=== PATIENT | male | born 1945 | race Caucasian/White ===

== ENCOUNTER 2017-03-18 19:46 | Emergency (ER) | payer MEDICARE ==
[2011-02-03 07:38] VITALS: BMI 23.0
[2017-03-18 20:35] LABS: BASOPHILS 0.2 % (0-2); EOSINOPHILS 0.8 % (0-7); HEMOGLOBIN 12.2 g/dL (13.5-17.5); IMMATURE GRANULOCYTES 0.2 % (0-5); LYMPHOCYTES 11.5 % (15-50); MCH 29.3 pg (26.0-34.0); MCV 88.9 fL (80.0-100.0); MEAN PLATELET VOLUME 9.2 fL (7.4-10.4); MONOCYTES 10.8 % (2-11); NEUTROPHILS 76.5 % (40-80); RBC 4.16 10x6/uL (4.20-6.10); RDW 12.3 % (11.5-14.5); WBC 12.3 10x3/uL (4.8-10.8)
[2017-03-18 20:43] LABS: PLATELET COUNT 418 10x3/uL (130-400)
[2017-03-18 21:01] LABS: ALBUMIN 2.6 g/dL (3.4-5.0); ALKALINE PHOSPHATASE 56 U/L (46-116); ALT (SGPT) 19 U/L (10-68); CALC OSMOLALITY 281 mosm/kg (275-300); CALCIUM 8.5 mg/dL (8.5-10.1); CHLORIDE - SERUM 103 mmol/L (98-107); CREATININE - SERUM 0.9 mg/dL (0.6-1.3); GLUCOSE 105 mg/dL (74-106); POTASSIUM - SERUM 4.7 mmol/L (3.5-5.1); PROTEIN - SERUM 6.6 g/dL (6.4-8.2); SODIUM 140 mmol/L (136-145); UREA NITROGEN 20 mg/dL (7-18); eGFR NON AFRICAN AMERICAN 89 mL/min (90-120)
== END 2017-03-18 23:28 | disposition home or self-care (01) ==
LOC: D.ER 19:46
PROVIDERS: Emergency Medicine
DX: K59.00 Constipation, unspecified (principal); F17.200 Nicotine dependence, unspecified, uncomplicated

== ENCOUNTER 2017-03-22 12:48 | Inpatient (IN) | payer MEDICARE ==
[~2017-03-22] VITALS: Ht 177.8 cm; Wt 79.7 kg
--- NOTE | ~2017-03-22 | HEMODYNAMI ---
PATIENT:MICHEL FISH JR MEDICAL RECORD: [id number] : 49 LOCATION:[address] ADMISSION DATE: 03/22/17 Generatedon:03/23/201714:02 Patient name: MICHEL FISH Patient #: [id number] SSN: : 1945 Date of study: 03/23/2017 Page: Of Hemodynamic Procedure Report Patient Data Patient Demographics Procedure consent was obtained First Name: MICHEL Gender: Male Last Name: ABE Suffix: [facility] Initial: Jaclyn : 1945 Patient #: [id number] Age: 71 year(s) Race: Unknown Additional ID: [id number] Contact details Address: [address] [place] [address] State: [place] City: [place] Zip code: [address] Admission Admission Data Admission Date: 03/22/2017 Admission Time: 12:48 Room #: 2113 Procedure Procedure Types Cath Procedure Peripheral Cath Diagnostic Procedure Miscellaneous PARACENTESIS WITH GUIDE Procedure Description Procedure Date Procedure Date: 03/23/2017 Procedure Start Time: 13:31 Procedure Staff Name Function Rj Tsai MD Performing Physician Keshia Letser RT Scrub Deborah Batista RN Nurse Milind Abarca RT Monitor Hemodynamics Rest Heart Rate: 89 (bpm) Snapshots Pre Cath Intra NCS Post Cath Vital Signs Time Heart Resp SPO2 NIBP (mmHg) Rhythm Pain Sedation Rate (ipm) (%) Status Level (bpm) 13:22:40 86 23 98 127/86(107) NSR 0 (11) 10(A) , No pain 13:26:51 87 21 98 117/86(93) NSR 0 (11) 10(A) , No pain 13:30:52 86 19 99 125/91(106) NSR 0 (11) 10(A) , No pain 13:35:51 90 18 98 Measuring NSR 0 (11) 10(A) , No pain 13:36:12 90 34 86 122/88(110) NSR 0 (11) 10(A) , No pain 13:40:20 87 21 98 116/81(97) NSR 0 (11) 10(A) , No pain 13:44:25 87 22 99 113/77(96) NSR 0 (11) 10(A) , No pain 13:48:31 88 20 99 106/72(93) NSR 0 (11) 10(A) , No pain 13:52:43 87 13 98 109/74(85) NSR 0 (11) 10(A) , No pain 13:57:42 86 23 98 Measuring NSR 0 (11) 10(A) , No pain 13:58:31 86 19 98 108/75(89) NSR 0 (11) 10(A) , No pain Procedure Log Time Note 13:13:37 Keshia OSUNA (R) () sent for patient. Start room use. 13:14:04 Time tracking: Regular hours 13:14:18 Plan of Care:Hemodynamics will remain stable., Cardiac rhythm will remain stable., Comfort level will be maintained., Respiratory function will remain adequate., Patient/ family verbilizes understanding of procedure., Procedure tolerated without complication., Recovers from procedure without complications.. 13:14:34 Patient arrived from Med II to IR. Patient remains on bed/stretcher for procedure. 13:14:41 Correct patient and procedure confirmed by team. 13:14:47 Signed procedure consent form obtained from patient. 13:14:50 ECG and BP/O2 sat monitors applied to patient. 13:14:55 - 13:17:01 SEE ANESTHESIA NOTE FOR PRE PROCEDURE TIVA 13:21:37 Vital chart was started 13:23:55 Baseline sample Acquired. 13:31:29 Physician arrived 13:31:29 --------ALL STOP TIME OUT------ 13:31:30 Final Timeout: patient, procedure, and site verified with staff and physician. All members of the team are in agreement. 13:31:35 Left abdomen site verified by team. 13:31:39 Physical assessment completed. ASA score P 3 - A patient with severe systemic disease as per Rj Tsai MD. 13:31:43 Sedation plan: IV Moderate Sedation Versed, Fentanyl 13::52 Procedure started. 13::52 Full Disclosure recording started 13:31:56 Local anesthetic to Abdominal area with Lidocaine 1% by Rj Tsai MD.INITIAL ACCESS ONLY 13:45:17 [id number] 8FR CATH DRAIN TRAY opened to sterile field. 13:45:26 CONNECTING TUBE FOR DRAINAGE BAG opened to sterile field. 13:53:31 4 LITERS DRAINED 13:53:58 Procedure ended.(Physican Out) 13:59:37 Sharps counted by scrub and verified by R.N. 13:59:45 Insertion/operative site no bleeding no hematoma. 14:00:00 Post-op/insertion site Left Abdominal area dressed using a 4 x 4 and Tegaderm. 14:00:08 Post Abdominal area:stable 14:00:46 SEE ANESTHESIA NOTE FOR POST PROCEDURE TIVA 14:00:58 Post procedure instruction explained to patient.Patient verbalizes understanding. 14:01:00 Procedure and supply charges have been captured, reviewed, submitted an d are correct. 14:01:24 Report given to [facility]. 14:01:27 Patient transfered to [facility] with Bed. 14:02:02 Vital chart was stopped Device Usage Item Name Manufacture Quantity Catalog Hospital Part Current Mini [facility] Lot# / Number Charge Number Stock Stock Serial# Code [id number] Care[employer]usion 1 [id number] 8FR CATH DRAIN TRAY CONNECTING TUBE [place] [id number] [id number] 5 FOR DRAINAGE Scientific BAG Signature Audit [place] Stage Time Signature Unsigned Intra-Procedure 03/23/2017 Milind 2:02:00 PM Rima RT (R) (CV) Signatures Monitor : Milind Signature : Rima RT Date : Time : [facility] [address] [place] [address]
[2017-03-22 13:16] VITALS: BP 125/83
--- NOTE | 2017-03-22 13:42 | NUR ---
ARRIVE TO ROOM VIA WHEELCHAIR FROM DOCTOR BARRIOS'S OFFICE ACCOMPANIED BY FRIEND. ALERT AND ORIENTED X4. AMBULATES TO BED FROM WHEELCHAIR WITH OUT DIFFICULTY. GAIT STEADY. CONTRAST FOR CT SCAN DRANK. DENIES ANY NEEDS. BED LOCKED AND LOW. CALL LIGHT IN REACH. TWO SIDERAILS UP. SCDs ON.
[2017-03-22] MEDS ORDERED: BETAPACE 80 MG80 MG PO (13:46)
[2017-03-22] MEDS ORDERED: MULTI-DAY VITAM1 TAB PO (13:47)
[2017-03-22] MEDS ORDERED: CARDIZEM CD240 MG PO (13:47)
[2017-03-22] MEDS ORDERED: BAYER CHEWABLE81 MG PO (13:48)
[2017-03-22] MEDS ORDERED: CITRATE OF MAG300 ML PO (13:48)
[2017-03-22] MEDS ORDERED: HYDROCODONE-APA1 TAB PO (13:49)
[2017-03-22] MEDS ORDERED: CYCLOBENZAPRINE10 MG PO (13:50)
[2017-03-22] MEDS ORDERED: GABAPENTIN100 MG PO (13:51)
[2017-03-22] MEDS ORDERED: KLONOPIN1 MG PO (13:51)
[2017-03-22] MEDS ORDERED: TRAZODONE HCL50 MG PO (13:52)
[2017-03-22] MEDS ORDERED: AMBIEN10 MG PO (13:52)
[2017-03-22 14:07] LABS: BASOPHILS 0.3 % (0-2); EOSINOPHILS 0.9 % (0-7); HEMATOCRIT 38.2 % (42.0-54.0); HEMOGLOBIN 12.3 g/dL (13.5-17.5); IMMATURE GRANULOCYTES 0.4 % (0-5); LYMPHOCYTES 11.6 % (15-50); MCHC 32.2 g/dL (31.0-37.0); MCV 90.1 fL (80.0-100.0); MEAN PLATELET VOLUME 9.2 fL (7.4-10.4); MONOCYTES 11.2 % (2-11); NEUTROPHILS 75.6 % (40-80); PLATELET COUNT 460 10x3/uL (130-400); RBC 4.24 10x6/uL (4.20-6.10); RDW 12.7 % (11.5-14.5); WBC 15.7 10x3/uL (4.8-10.8)
[2017-03-22 14:20] LABS: ALBUMIN 2.5 g/dL (3.4-5.0); ALKALINE PHOSPHATASE 58 U/L (46-116); ALT (SGPT) 17 U/L (10-68); CALC OSMOLALITY 278 mosm/kg (275-300); CALCIUM 8.8 mg/dL (8.5-10.1); CARBON DIOXIDE 27.4 mmol/L (21.0-32.0); CHLORIDE - SERUM 102 mmol/L (98-107); CREATININE - SERUM 0.9 mg/dL (0.6-1.3); GLUCOSE 105 mg/dL (74-106); POTASSIUM - SERUM 5.1 mmol/L (3.5-5.1); PROTEIN - SERUM 6.5 g/dL (6.4-8.2); SODIUM 139 mmol/L (136-145); UREA NITROGEN 16 mg/dL (7-18); eGFR NON AFRICAN AMERICAN 89 mL/min (90-120)
[2017-03-22 14:30] LABS: THYROID STIMULATING HORMONE 4.47 uIU/mL (0.36-3.74)
[2017-03-22 15:53] VITALS: BP 116/75; BMI 25.4
[2017-03-22 16:00] VITALS: BP 115/72
[2017-03-22 19:00] VITALS: BP 115/81
[2017-03-23] VITALS (11 sets, daily range): BP systolic 98–149; BP diastolic 50–93; Ht 177.8 cm; Wt 79.7 kg
[2017-03-23 05:52] LABS: BASOPHILS 0.1 % (0-2); EOSINOPHILS 0.3 % (0-7); HEMATOCRIT 36.9 % (42.0-54.0); HEMOGLOBIN 12.3 g/dL (13.5-17.5); IMMATURE GRANULOCYTES 0.3 % (0-5); LYMPHOCYTES 6.7 % (15-50); MCH 28.9 pg (26.0-34.0); MCHC 33.3 g/dL (31.0-37.0); MEAN PLATELET VOLUME 9.3 fL (7.4-10.4); MONOCYTES 7.1 % (2-11); NEUTROPHILS 85.5 % (40-80); PLATELET COUNT 463 10x3/uL (130-400); RBC 4.25 10x6/uL (4.20-6.10); RDW 12.7 % (11.5-14.5); WBC 14.7 10x3/uL (4.8-10.8)
[2017-03-23 06:00] LABS: INR 1.29 (0.85-1.17)
[2017-03-23 06:13] LABS: ALKALINE PHOSPHATASE 54 U/L (46-116); ALT (SGPT) 15 U/L (10-68); CALC OSMOLALITY 274 mosm/kg (275-300); CALCIUM 8.3 mg/dL (8.5-10.1); CARBON DIOXIDE 26.3 mmol/L (21.0-32.0); CHLORIDE - SERUM 102 mmol/L (98-107); GLUCOSE 96 mg/dL (74-106); POTASSIUM - SERUM 5.1 mmol/L (3.5-5.1); PRE-ALBUMIN 7.3 mg/dL (18.0-35.7); PROTEIN - SERUM 6.5 g/dL (6.4-8.2); SODIUM 138 mmol/L (136-145); eGFR NON AFRICAN AMERICAN 79 mL/min (90-120)
[2017-03-23 06:19] LABS: MCV 86.8 fL (80.0-100.0)
[2017-03-23 06:22] LABS: UREA NITROGEN 11 mg/dL (7-18)
--- NOTE | 2017-03-23 07:00 | NUR ---
REPORT RECIEVED FROM OFF GOING NURSE. SEE ASSESSMENT FLOW SHEET. PT ON A CLEAR LIQUID DIET FOR PARECENTESIS SCHEDULED TODAY. PT BREATHING NORMAL AND UNLABORED. DENIES PAIN. CALL LIGHT IN REACH. WILL CONT POC
--- NOTE | 2017-03-23 09:00 | NUR ---
PT LEFT WITH STAFF FOR BOWEL CLEANSING VIA ENEMA.
--- NOTE | 2017-03-23 10:30 | NUR ---
CONCENT FOR PARCENTISIS SIGNED AND PLACED IN THE CHART. PT REMAINS THE FROM PREVIOUS SHIFT ASSESSMENT. CALL LIGHT IN REACH.
--- NOTE | 2017-03-23 14:00 | NUR ---
PT LEFT WITH GI TEAM FOR PARECENTISIS.
--- NOTE | 2017-03-23 15:00 | NUR ---
PT BACK IN ROOM ABD DESTENSION SUBSISDED AND NOT FIRM BEFORE. PT DOING WELL AND REMAINS AT BASELINE FROM PREVIOUS ASSESSMENT. GOT REPORT FROM NURSE STATING THE PULLED OFF 4L OF FLUID. BREATHING NORMAL AND UNLABORED. CALL LIGHT INR EACH.
[2017-03-23 15:46] LABS: EOS BF 2 %; MACROPHAGES BF 21 %; MESOTHELIALS BF 2 %; NEUT - BF 55 %
--- NOTE | 2017-03-23 17:00 | NUR ---
AT BED SIDE STATING PLANS FOR A FULL LIQUID FOR DINNER TODAY, CLEAR LIQUID DIET STARTING TOMORROW, PLAN FOR COLOSCOPY PREP, PUSH PO FLUIDS TOMORROW, START ABT, A CXR AND UA WITH C AND S FOR ELEVATED TEMP THE NIGHT BEFORE AND ELEVATED WBC'S.
--- NOTE | 2017-03-23 18:45 | NUR ---
REPORT GIVEN TO ON COMING NURSE AND AWARE OF NEW ORDERS. PT BREATHING NORMAL AND UNLABORED. CALL LIGHT IN REACH. WILL CONT POC
--- NOTE | 2017-03-23 19:52 | NUR ---
RESUMED CARE OF PT, LYING IN BED RESPIRAITONS EVEN AND UNLABORED ON ROOM AIR. LEFT FOREARM INFUSING 1/2 NS @ 100. PLAN OF CARE DISCUSSED, URINAL AT BEDSIDE TO OBTAIN SPECIMEN. NO NEEDS VOICED AT THIS TIME, WILL CONTINUE TO MONITOR. SEE NURSE ASSESSMENT.
[2017-03-24] VITALS: BP 108/87
[2017-03-24 02:25] LABS: APPEARANCE CLEAR (CLEAR); BILIRUBIN NEGATIVE (NEGATIVE); COLOR YELLOW (YELLOW); GLUCOSE NEGATIVE (NEGATIVE); KETONE NEGATIVE (NEGATIVE); LEUKOCYTE ESTERASE TRACE (NEGATIVE); NITRITE NEGATIVE (NEGATIVE); PROTEIN NEGATIVE (NEGATIVE); UROBILINOGEN NORMAL (NORMAL)
[2017-03-24 02:28] LABS: BACTERIA FEW /hpf (NONE SEEN); EPITHELIAL CELLS 0-5 /hpf (0-5); RED CELLS - URINE 0-5 /hpf (0-5); WHITE CELLS - URINE 0-5 /hpf (0-5)
--- NOTE | 2017-03-24 02:51 | NUR ---
CALL LIGHT IN REACH. WILL CONTINUE WITH PLAN OF CARE. WILL CONTINUE TO MONITOR.
[2017-03-24 04:00] VITALS: BP 114/75
[2017-03-24 06:20] LABS: BASOPHILS 0.1 % (0-2); EOSINOPHILS 0.4 % (0-7); HEMATOCRIT 35.4 % (42.0-54.0); HEMOGLOBIN 11.8 g/dL (13.5-17.5); IMMATURE GRANULOCYTES 0.3 % (0-5); LYMPHOCYTES 9.5 % (15-50); MCH 28.6 pg (26.0-34.0); MCHC 33.3 g/dL (31.0-37.0); MCV 85.7 fL (80.0-100.0); MEAN PLATELET VOLUME 9.4 fL (7.4-10.4); MONOCYTES 10.1 % (2-11); NEUTROPHILS 79.6 % (40-80); PLATELET COUNT 474 10x3/uL (130-400); RBC 4.13 10x6/uL (4.20-6.10); RDW 12.8 % (11.5-14.5); WBC 12.7 10x3/uL (4.8-10.8)
--- NOTE | 2017-03-24 06:31 | NUR ---
GONE FOR XRAY
[2017-03-24 06:43] LABS: INR 1.5 (0.85-1.17)
[2017-03-24 06:54] LABS: ALBUMIN 1.9 g/dL (3.4-5.0); ALKALINE PHOSPHATASE 44 U/L (46-116); ALT (SGPT) 12 U/L (10-68); CALC OSMOLALITY 284 mosm/kg (275-300); CALCIUM 7.9 mg/dL (8.5-10.1); CARBON DIOXIDE 27.5 mmol/L (21.0-32.0); CHLORIDE - SERUM 108 mmol/L (98-107); CREATININE - SERUM 0.8 mg/dL (0.6-1.3); GLUCOSE 123 mg/dL (74-106); PROTEIN - SERUM 5.7 g/dL (6.4-8.2); SODIUM 143 mmol/L (136-145); UREA NITROGEN 10 mg/dL (7-18); eGFR NON AFRICAN AMERICAN > 90 mL/min (90-120)
[2017-03-24 06:55] LABS: POTASSIUM - SERUM 4.2 mmol/L (3.5-5.1)
--- NOTE | 2017-03-24 07:50 | NUR ---
AM ROUNDING DONE WITH NO COMPLAINT FROM PATIENT EXCEPT SLIGHT HEADAHE AND DISCOMFORT TO ABDOMEN. I TALKED TO HIM ABOUT THE FLUID SHIFTING FROM THE PARATHORCENTHSIS OF 4L YESTERDAY AND HIS BODY GETTING USED TO IT NOT BEING THERE. CLEAN 2 X 2 AND OPSITE SEEN TO LEFT UPPER QUAD. ON ROOM AIR. WILL START GI PREP TODAY. LEFT FA SEENW ITH 1/2 NS INFUSING AT 100 CC/HR. PTC OF "BLOOD SUGAR DROPPING" POC GLUCOSE IS 112. WILL CPOC.
[2017-03-24 09:12] VITALS: BP 95/61
[2017-03-24 11:33] VITALS: BP 102/71
--- NOTE | 2017-03-24 13:47 | NUR ---
STILL WORKING ON COLON/GI PREP.
[2017-03-24 16:13] VITALS: BP 124/72
--- NOTE | 2017-03-24 18:06 | NUR ---
STILL WITH GI PREP. WILL BE NPO PAST MIDNIGHT TONIGHT
[2017-03-24 19:00] VITALS: BP 122/77
--- NOTE | 2017-03-24 22:52 | NUR ---
PT IN BED WATCHING TELEVISION. DENIES NEEDS AT THIS TIME WILL CONTINUE TO MONITOR
[2017-03-25] VITALS (10 sets, daily range): BP systolic 110–143; BP diastolic 68–95
[2017-03-25 05:30] LABS: BASOPHILS 0.1 % (0-2); EOSINOPHILS 0.5 % (0-7); HEMATOCRIT 35.3 % (42.0-54.0); HEMOGLOBIN 11.8 g/dL (13.5-17.5); IMMATURE GRANULOCYTES 0.4 % (0-5); LYMPHOCYTES 6.8 % (15-50); MCH 28.2 pg (26.0-34.0); MCHC 33.4 g/dL (31.0-37.0); MCV 84.4 fL (80.0-100.0); MEAN PLATELET VOLUME 9.3 fL (7.4-10.4); MONOCYTES 8.3 % (2-11); NEUTROPHILS 83.9 % (40-80); PLATELET COUNT 473 10x3/uL (130-400); RBC 4.18 10x6/uL (4.20-6.10); WBC 13.3 10x3/uL (4.8-10.8)
[2017-03-25 05:51] LABS: INR 1.45 (0.85-1.17); PROTIME 17.5 SECONDS (11.6-15.0)
[2017-03-25 05:59] LABS: ALBUMIN 1.7 g/dL (3.4-5.0); ALKALINE PHOSPHATASE 45 U/L (46-116); ALT (SGPT) 11 U/L (10-68); BILIRUBIN - TOTAL 0.33 mg/dL (0.2-1.3); CALCIUM 7.5 mg/dL (8.5-10.1); CHLORIDE - SERUM 104 mmol/L (98-107); CREATININE - SERUM 0.7 mg/dL (0.6-1.3); GLUCOSE 90 mg/dL (74-106); PROTEIN - SERUM 5.7 g/dL (6.4-8.2); SODIUM 138 mmol/L (136-145); eGFR NON AFRICAN AMERICAN > 90 mL/min (90-120)
[2017-03-25 06:00] LABS: CALC OSMOLALITY 273 mosm/kg (275-300); POTASSIUM - SERUM 3.4 mmol/L (3.5-5.1); UREA NITROGEN 7 mg/dL (7-18)
[2017-03-25 06:55] LABS: APTT 40.5 SECONDS (22.8-39.4)
--- NOTE | 2017-03-25 07:58 | NUR ---
AM ROUNDING DONE WITH NPO FOR MULTIPLE PROCEDURES TODAY. LEFT FA SEEN WITH 1/2 NS INFUSING AT 100 CC/HR. ON ROOM AIR. LEFT PACEMAKER SITE SEEN. ABDOMEN IS LARGE AND DISTENDED. WILL CPOC.
--- NOTE | 2017-03-25 08:23 | NUR ---
TO IR VIA BED.
[2017-03-25 09:15] LABS: ALPHA FETOPROTEIN -(TUMOR MRK) 1.1 ng/mL (0.0-8.3)
--- NOTE | 2017-03-25 09:31 | NUR ---
RETURNS FROM IR WITH CT BX DONE, NO PARACENTHESIS NEEDED. DRESSING SEEN TO RIGHT LOWER ABDOMEN, C/D/I. STILL NPO FOR COLONOSCOPY THIS AFTERNOON.
--- NOTE | 2017-03-25 09:58 | NUR ---
COMPLAINTS OF ABDOMEN PAIN 03/03. 0.5 MG IV DILAUDID GIVEN PER REQUEST,
--- NOTE | 2017-03-25 11:15 | NUR ---
Nutrition Follow Up: Chart reviewed. Pt continues NPO. +BM 03/24/17. Wt stable. Meds and labs reviewed. Rec advancing ZAYRA when medically feasible. RD following.
--- NOTE | 2017-03-25 11:59 | NUR ---
STILL NPO AT PRESENT TIME, DENIES ANY NEEDS AT THIS TIME. WILL CPOC.
--- NOTE | 2017-03-25 13:43 | NUR ---
STILL NPO AT PRESENT TIME.
--- NOTE | 2017-03-25 15:54 | NUR ---
COMPLAINTS OF PAIN TO ABDOMINAL AREA 05/03. DILAUDID 0.5 MG GIVEN SLOW IVP MIXED WITH 6 CC NS
--- NOTE | 2017-03-25 16:40 | NUR ---
TO GI LAB VIA BED.
--- NOTE | 2017-03-25 18:21 | NUR ---
RETURNS FROM GI LAB, DENIES NEEDS.
--- NOTE | 2017-03-25 18:40 | NUR ---
PATIENT INQUIRING ABOUT HIS PAIN MEDICATION. I EXPLAINED THAT IT IS NOT DUE TILL 1999, THEN I SEE THAT IT HAS FALLEN OFF THE EMAR. JHOANA KAUR PAGED TO SEE ABOUT HOME MEDICATION OF NORCO OR CONTINUING OF DILAUDID. AWAITING CALL BACK.
--- NOTE | 2017-03-25 19:30 | NUR ---
PT IN BED WATCHING TELEVISION. REQUESTS PAIN MEDICATION HOWEVER THERE IS NO PAIN MEDICATION ORDERED. WILL CALL MD TO REQUEST A PAIN MED BE ORDERED.
[2017-03-26] VITALS: BP 150/54
[2017-03-26 04:00] VITALS: BP 166/71
[2017-03-26 05:56] LABS: BASOPHILS 0.1 % (0-2); EOSINOPHILS 0.5 % (0-7); HEMATOCRIT 36.5 % (42.0-54.0); HEMOGLOBIN 12.3 g/dL (13.5-17.5); IMMATURE GRANULOCYTES 0.4 % (0-5); LYMPHOCYTES 7.7 % (15-50); MCH 28.5 pg (26.0-34.0); MCHC 33.7 g/dL (31.0-37.0); MCV 84.7 fL (80.0-100.0); MEAN PLATELET VOLUME 9.1 fL (7.4-10.4); MONOCYTES 9.6 % (2-11); NEUTROPHILS 81.7 % (40-80); PLATELET COUNT 471 10x3/uL (130-400); RBC 4.31 10x6/uL (4.20-6.10); RDW 12.9 % (11.5-14.5); WBC 13.9 10x3/uL (4.8-10.8)
[2017-03-26 06:04] LABS: INR 1.48 (0.85-1.17); PROTIME 17.8 SECONDS (11.6-15.0)
[2017-03-26 06:16] LABS: ALBUMIN 1.6 g/dL (3.4-5.0); ALKALINE PHOSPHATASE 44 U/L (46-116); ALT (SGPT) 15 U/L (10-68); BILIRUBIN - TOTAL 0.32 mg/dL (0.2-1.3); CALC OSMOLALITY 275 mosm/kg (275-300); CALCIUM 7.7 mg/dL (8.5-10.1); CARBON DIOXIDE 25.7 mmol/L (21.0-32.0); CHLORIDE - SERUM 105 mmol/L (98-107); CREATININE - SERUM 0.8 mg/dL (0.6-1.3); GLUCOSE 104 mg/dL (74-106); POTASSIUM - SERUM 3.9 mmol/L (3.5-5.1); PROTEIN - SERUM 5.6 g/dL (6.4-8.2); SODIUM 138 mmol/L (136-145); UREA NITROGEN 13 mg/dL (7-18); eGFR NON AFRICAN AMERICAN > 90 mL/min (90-120)
--- NOTE | 2017-03-26 07:30 | NUR ---
REPORT RECIEVED. PT RESTING QUIELTLY, RR EVEN AND UNLABORED. PT REQUESTED PAIN MEDICATION TO BE INCREASED FROM NORCO 5 TO NORCO 10. WILL CONSULT THE MD ABOUT PT REQUEST. WILL CTM.
[2017-03-26 08:38] VITALS: BP 137/79
[2017-03-26 12:54] VITALS: BP 122/79
[2017-03-26 16:37] VITALS: BP 107/69
[2017-03-26 19:00] VITALS: BP 114/69
--- NOTE | 2017-03-26 19:00 | NUR ---
PT RESTING QUIETLY, DENIES NEEDS AT THIS TIME. RR EVEN AND UNLABORED. WILL GIVE REPORT ON PT CONDITION FOR THE DAY.
--- NOTE | 2017-03-26 22:42 | NUR ---
PT IN BED WATCHING TELEVISION DENIES NEEDS AT THIS TIME WILL CONTINUE TO MONITOR
[2017-03-27] VITALS: BP 104/56
[2017-03-27 04:00] VITALS: BP 99/60
[2017-03-27 05:22] LABS: BASOPHILS 0.2 % (0-2); EOSINOPHILS 1.8 % (0-7); HEMATOCRIT 34.9 % (42.0-54.0); HEMOGLOBIN 11.7 g/dL (13.5-17.5); IMMATURE GRANULOCYTES 0.5 % (0-5); LYMPHOCYTES 8.7 % (15-50); MCH 28.3 pg (26.0-34.0); MCHC 33.5 g/dL (31.0-37.0); MCV 84.3 fL (80.0-100.0); MEAN PLATELET VOLUME 9.2 fL (7.4-10.4); MONOCYTES 11.1 % (2-11); NEUTROPHILS 77.7 % (40-80); PLATELET COUNT 456 10x3/uL (130-400); RBC 4.14 10x6/uL (4.20-6.10); WBC 11.8 10x3/uL (4.8-10.8)
[2017-03-27 05:43] LABS: INR 1.35 (0.85-1.17); PROTIME 16.6 SECONDS (11.6-15.0)
[2017-03-27 05:50] LABS: ALBUMIN 1.9 g/dL (3.4-5.0); ALKALINE PHOSPHATASE 39 U/L (46-116); ALT (SGPT) 13 U/L (10-68); BILIRUBIN - TOTAL 0.21 mg/dL (0.2-1.3); CALC OSMOLALITY 277 mosm/kg (275-300); CALCIUM 7.5 mg/dL (8.5-10.1); CARBON DIOXIDE 26.3 mmol/L (21.0-32.0); CHLORIDE - SERUM 104 mmol/L (98-107); CREATININE - SERUM 0.8 mg/dL (0.6-1.3); GLUCOSE 104 mg/dL (74-106); POTASSIUM - SERUM 4.1 mmol/L (3.5-5.1); PROTEIN - SERUM 5.7 g/dL (6.4-8.2); SODIUM 139 mmol/L (136-145); UREA NITROGEN 12 mg/dL (7-18); eGFR NON AFRICAN AMERICAN > 90 mL/min (90-120)
--- NOTE | 2017-03-27 08:07 | NUR ---
INTRODUCED MYSELF TO PT PRIMARY RN FOR TODAYS SHIFT. PT A&O RESTING QUIETLY IN BED WATCHING TV. PT IS HOPING TO BE DISCHARGED TODAY. SHIFT ASSESSMENT COMPLETED. PTS ABDOMEN VERY TIGHT AND DISTENDED BOWEL SOUNDS ACTIVE X4. PT TENDER TO LLQ AND RUQ. REMOVED DRSG FROM BIOPSY AND PARACENTESIS AND SKIN CLEAN AND INTACT. NO S/S OF INFECTION NOTED. PT HAS A R.FA PIV WITH DRSG CDI AND SWAB CAPS IN USE. WILL REVIEW PTS CHART NOTES AND SEE ABOUT DISCHARGE PLANNING. PT DENIES ANY CURRENT NEEDS AT THIS TIME. CL IN REACH, BED IN LOWEST, SIDE RAILS X2. WILL CPOC.
[2017-03-27 08:58] VITALS: BP 108/65
--- NOTE | 2017-03-27 10:10 | NUR ---
PT VERY EAGER TO BE DISCHARGED. AT BEDSIDE TALKING WITH HIM. PAGED PRIMARY TO SEE ABOUT DISCHARGE ORDERS.
--- NOTE | 2017-03-27 11:08 | NUR ---
INITIATED ALBUMIN TO INFUSE VIA R.FA PIV. DRSG CDI AND SWAB CAPS IN USE. PT RESTING AND DENIES ANY CURRENT NEEDS. CL IN REACH. WILL CPOC.
[2017-03-27 11:53] VITALS: BP 108/66
[2017-03-27] MEDS ORDERED: FLORAJEN3 CAPS460 MG PO (12:19)
[2017-03-27] MEDS ORDERED: ALDACTONE100 MG PO (12:20)
[2017-03-27] MEDS ORDERED: PEPCID INJ20 MG/2 ML PO (12:20)
[2017-03-27] MEDS ORDERED: FUROSEMIDE10 MG/M1 PO (12:21)
[2017-03-27] MEDS ORDERED: FLAGYL 500500 MG/100 PO (12:22)
--- NOTE | 2017-03-27 13:50 | NUR ---
D/C PTS R.FA PIV WITH CATH TIP FULLY INTACT. BELONGINGS COLLECTED. DISCHARGE TEACHING PROVIDED AND PAPERS SIGNED. PT VERBALIZED UNDERSTANDING AND DENIES ANY FURTHER NEEDS OR QUESTIONS. FRIEND AT BEDSIDE FOR TRANSPORTATION.
--- NOTE | 2017-04-07 12:22 | EC ---
PATIENT:MICHEL FISH JR DATE OF SERVICE: 03/23/17 SEX: M MEDICAL RECORD: [id number] DATE OF : [birth year] LOCATION:[address] AGE OF PATIENT: 71 ADMISSION DATE: 03/23/17 REFERRING PHYSICIAN: INTERPRETING PHYSICIAN: HELENA HATCH MD ECHOCARDIOGRAM REPORT ECHO CHARGES 4 ECHO COMPLETE CLINICAL DIAGNOSIS: NEW ONSET ACITIES HX OF CAD CARDIOMYOPATHY,PACER ECHOCARDIOGRAPHIC MEASUREMENTS (adult normal given) AC root (d.<3.7cm) 4.1 cm LV Septum d (<1.2 cm> 1.6 cm Valve Excursion 2.2 cm LV Septum (systole) 1.9 cm Left Atria (s.<4.0cm> 3.6 cm LVPW d(<1.2cm) 1.5 cm RV (d.<2.3cm) 3.2 cm LVPW (sytole) 1.9 cm LV diastole(<5.6CM) 4.8 cm MV E-F(>70mm/sec) cm LV systole 2.5 cm LVOT Diameter 2.3 cm MV exc.(>10mm) cm Est.ejection fraction (50-75%) % Pericardial Effusion N DOPPLER: LVIT cm/sec A 77.0 cm/sec E 41.0 cm/sec LA cm/sec RVSP 31 mmHg LVOT 95 cm/sec AOP1/2T m/s Asc. Ao 180 cm/sec RVOT 97 cm/sec RA cm/sec PA 127 cm/sec AV Gradient Peak 12.98mmHg AV Mean 8.75 mmHg AV Area 1.9 cm MV Gradient Peak 7.45 mmHg MV Mean 2.80 mmHg MV Area cm COMMENTS: High Wire Artist: Patric CONTRERAS Gas Operations Analyst: 1 Dr. Hatch TAPE# PACS DATE OF SERVICE: 03/27/2017 Echocardiogram FINDINGS: 1. Left ventricular chamber size is within normal limits. Left ventricular systolic function is normal. Overall ejection fraction estimated at 60%. 2. Left atrium, right atrium, and right ventricle chamber sizes are within normal limits. 3. Valvular structures have normal structure and motion. ECHOCARDIOGRAM REPORT [id number] MICHEL FISH JR 4. Doppler interrogation only reveals mild tricuspid regurgitation. No other valvular insufficiency or stenosis. 5. No evidence of pericardial effusion or left ventricular thrombus. TRANSINT:[id number] Voice Confirmation ID: [id number] DOCUMENT ID: [id number] HELENA HATCH MD at 1222 CC: [id number] DICTATION DATE: 03/27/17 1118 MATERIAL EXPEDITOR: 03/27/17 1313 DIS IN 03/27/17 [place] [id number] [place] [id number]
== END 2017-03-27 14:02 | disposition home or self-care (01) | DRG 375 ==
LOC: D.M2 12:48 → OBSVTIME 12:48 → D.M2 12:48
PROVIDERS: Family Medicine; Internal Medicine Gastroenterology; Radiology Diagnostic Radiology; ADMIT Family Medicine
PROC: 0W9G3ZZ Drainage of Peritoneal Cavity, Percutaneous Approach (ICD-10-PCS; 2017-03-23)
PROC: 0DBT3ZX (ICD-10-PCS; principal; 2017-03-24)
PROC: 0DB98ZX Excision of Duodenum, Via Natural or Artificial Opening Endoscopic, Diagnostic (ICD-10-PCS; 2017-03-25)
PROC: 0DB68ZX Excision of Stomach, Via Natural or Artificial Opening Endoscopic, Diagnostic (ICD-10-PCS; 2017-03-25)
PROC: 0DB58ZX Excision of Esophagus, Via Natural or Artificial Opening Endoscopic, Diagnostic (ICD-10-PCS; 2017-03-25)
PROC: 0DJD8ZZ Inspection of Lower Intestinal Tract, Via Natural or Artificial Opening Endoscopic (ICD-10-PCS; 2017-03-25)
DX: C48.1 Malignant neoplasm of specified parts of peritoneum (principal); J98.11 Atelectasis; C78.80 Secondary malignant neoplasm of unspecified digestive organ; R18.0 Malignant ascites; K70.31 Alcoholic cirrhosis of liver with ascites; K70.0 Alcoholic fatty liver; I25.10 Atherosclerotic heart disease of native coronary artery without angina pectoris; Z85.038 Personal history of other malignant neoplasm of large intestine; I10 Essential (primary) hypertension; Z95.0 Presence of cardiac pacemaker; I48.91 Unspecified atrial fibrillation; K59.00 Constipation, unspecified; K76.89 Other specified diseases of liver; K29.70 Gastritis, unspecified, without bleeding; K44.9 Diaphragmatic hernia without obstruction or gangrene; K20.9 Esophagitis, unspecified; K29.80 Duodenitis without bleeding

== ENCOUNTER 2017-04-07 13:06 | Inpatient (IN) | payer MEDICARE ==
[~2017-04-07] VITALS: Ht 177.8 cm; Wt 80.6 kg
[~2017-04-07 13:06] MED LIST: ALDACTONE100 MG PO; AMBIEN10 MG PO; BAYER CHEWABLE81 MG PO; BETAPACE 80 MG80 MG PO; CARDIZEM CD240 MG PO; CITRATE OF MAG300 ML PO; CYCLOBENZAPRINE10 MG PO; FLAGYL 500500 MG/100 PO; FLORAJEN3 CAPS460 MG PO; FUROSEMIDE10 MG/M1 PO; GABAPENTIN100 MG PO; HYDROCODONE-APA1 TAB PO; KLONOPIN1 MG PO; MULTI-DAY VITAM1 TAB PO; PEPCID INJ20 MG/2 ML PO; TRAZODONE HCL50 MG PO
[2017-04-07 14:35] LABS: HEMATOCRIT 39.8 % (42.0-54.0); HEMOGLOBIN 13.6 g/dL (13.5-17.5); MCH 27.9 pg (26.0-34.0); MCHC 34.2 g/dL (31.0-37.0); MCV 81.6 fL (80.0-100.0); MEAN PLATELET VOLUME 9.1 fL (7.4-10.4); PLATELET COUNT 707 10x3/uL (130-400); RBC 4.88 10x6/uL (4.20-6.10); RDW 13.5 % (11.5-14.5); WBC 21.7 10x3/uL (4.8-10.8)
[2017-04-07 14:51] LABS: ALBUMIN 2.2 g/dL (3.4-5.0); ANION GAP 16.6 mmol/L (8-16); BILIRUBIN - TOTAL 0.6 mg/dL (0.2-1.3); CARBON DIOXIDE 24.4 mmol/L (21.0-32.0); CREATININE - SERUM 1.4 mg/dL (0.6-1.3); PROTEIN - SERUM 7.5 g/dL (6.4-8.2)
[2017-04-07 15:30] LABS: LYMPHOCYTES 10 % (15-50); MONOCYTES 5 % (2-11); NEUTROPHILS 85 % (40-80); PLATELET ESTIMATE INCREASED
[2017-04-07 15:31] LABS: APPEARANCE SLT CLOUDY (CLEAR); BILIRUBIN NEGATIVE (NEGATIVE); COLOR YELLOW (YELLOW); GLUCOSE NEGATIVE (NEGATIVE); KETONE SMALL mg/dL (NEGATIVE); NITRITE NEGATIVE (NEGATIVE); PROTEIN TRACE mg/dL (NEGATIVE); SPECIFIC GRAVITY 1.025 (1.005-1.020); UROBILINOGEN NORMAL (NORMAL)
[2017-04-07 15:33] LABS: BACTERIA MODERATE /hpf (NONE SEEN); MUCUS <1+ /lpf (NONE SEEN); RED CELLS - URINE 0-5 /hpf (0-5)
--- NOTE | 2017-04-07 20:10 | NUR ---
PT ARRIVED ON UNIT VIA STRETCHER ESCORTED BY ER NURSE. NG TUBE TO RIGHT NARE CONNECTED TO LIS WITH DARK GREEN LIQUID IN COLLECTION CANNISTER. IV IN LEFT WRIST PATENT AND NS STARTED AT 150 ML / HR. ABDOMEN VERY DISTENDED AND TIGHT, WITH ABSENT BOWEL SOUNDS IN ALL QUADRANTS. WILL MONITOR CLOSELY FOR NEEDS.
--- NOTE | 2017-04-07 21:00 | NUR ---
PROVIDED ORAL CARE PRODUCTS AND PT TEACHING ON USE.
--- NOTE | 2017-04-07 22:15 | NUR ---
GAVE DUCOLAX SUPPOSITORY, ALONG WITH IV PEPCID AND IVPB FLGYL.
--- NOTE | 2017-04-07 22:15 | NUR ---
GAVE DILAUDID 0.5 MG IVP PER PT REQUEST FOR PAIN.
[2017-04-07 22:43] VITALS: BP 135/94; BMI 23.0
--- NOTE | 2017-04-07 23:13 | NUR ---
ADMISSION ASSESSMENT AND HISTORY COMPLETE. MEDICATION RECONCILLIATION COMPLETE.
--- NOTE | 2017-04-07 23:15 | NUR ---
PT PULLED NG TUBE OUT A FEW INCHES. ADVANCED BACK INTO POSITION AND PLACED NEW LANDRUM ON NOSE.
[2017-04-08 04:00] VITALS: BP 133/94
[2017-04-08 04:49] LABS: BASOPHILS 0.1 % (0-2); EOSINOPHILS 0 % (0-7); HEMATOCRIT 36.5 % (42.0-54.0); HEMOGLOBIN 12.4 g/dL (13.5-17.5); IMMATURE GRANULOCYTES 0.6 % (0-5); LYMPHOCYTES 5.4 % (15-50); MCH 27.9 pg (26.0-34.0); MCV 82.2 fL (80.0-100.0); MEAN PLATELET VOLUME 9.1 fL (7.4-10.4); MONOCYTES 6.3 % (2-11); NEUTROPHILS 87.6 % (40-80); PLATELET COUNT 704 10x3/uL (130-400); RBC 4.44 10x6/uL (4.20-6.10); RDW 13.7 % (11.5-14.5); WBC 18.9 10x3/uL (4.8-10.8)
[2017-04-08 05:02] LABS: INR 1.09 (0.85-1.17)
[2017-04-08 05:21] LABS: ALBUMIN 1.9 g/dL (3.4-5.0); ANION GAP 15.2 mmol/L (8-16); BILIRUBIN - TOTAL 0.4 mg/dL (0.2-1.3); CALCIUM 8.9 mg/dL (8.5-10.1); CARBON DIOXIDE 25.4 mmol/L (21.0-32.0); CREATININE - SERUM 1.4 mg/dL (0.6-1.3); MAGNESIUM - SERUM 2.1 mg/dL (1.8-2.4); PHOSPHOROUS 6.5 mg/dL (2.5-4.9); POTASSIUM - SERUM 5.6 mmol/L (3.5-5.1); PROTEIN - SERUM 6.8 g/dL (6.4-8.2)
[2017-04-08 05:30] LABS: PRE-ALBUMIN 11.2 mg/dL (18.0-35.7)
--- NOTE | 2017-04-08 07:00 | NUR ---
REPORT RECIEVED ASSUMED CARE. PATIENT IN BED WITH IV INTACT. NO COMPLAINTS AT THIS TIME. CALL LIGHT WITHIN REACH. BA ON.
--- NOTE | 2017-04-08 08:00 | NUR ---
PATIENT ASSESSED AT THIS TIME. GREEN AND IV INTACT. PATIENT SEEMS TO PUT SENTENCES TOGETHER TODAY BETTER THAN LAST WEEK. NO COMPLAINTS OR SIGNS OF DISTRESS. CALL LIGHT WITHIN REACH.
[2017-04-08 08:33] VITALS: BP 121/92
[2017-04-08 10:51] VITALS: Ht 177.8 cm; Wt 80.6 kg
--- NOTE | 2017-04-08 12:30 | NUR ---
PATIENT IN BED SITTING UP EATING. NO COMPLAINTS AT THIS TIME. IV INTACT. CALL LIGHT WITHIN REACH.
[2017-04-08 12:48] VITALS: BP 110/89
[2017-04-08 17:18] VITALS: BP 129/87
--- NOTE | 2017-04-08 18:45 | NUR ---
PATIENT IN BED WITH IV INTACT. N O COMPLAINTS. NGT LIWS. HAD 2 BMS TODAY AFTER SUPPOSITORY THIS AM. MEDIUM BMS. PATIENT STATED FEELS A LITTLE BETTER. STILL GETTING MODERATE AMOUNT OF GREEN DRAINAGE FROM NGT. NO PROBLEMS AT THIS TIME. CALL LIGHT WITHIN REACH.
--- NOTE | 2017-04-08 18:55 | NUR ---
PATIENT IN BED WITH NO COMPLAINTS. IV AND GREEN INTACT. BA ON. CALL LIGHT WITHIN REACH.
--- NOTE | 2017-04-08 19:00 | NUR ---
REPORT RECEIVED AND CARE OF PT ASSUMED. PT LYING IN SUPINE POSITION VISITING WITH DR RODRIGUEZ AT THIS TIME. WILL MONITOR CLOSELY FOR NEEDS.
[2017-04-08 20:00] VITALS: BP 132/84
--- NOTE | 2017-04-08 21:30 | NUR ---
HS MEDICATIONS GIVEN TO INCLUDE DILAUDID 0.5 MG IVP PER PRN ORDER, FOR C/O PAIN AT LEVEL 7/10 IN BACK AND ABDOMEN. WILL CONTINUE TO MONITOR FOR NEEDS.
--- NOTE | 2017-04-08 22:45 | NUR ---
ALL LINENS AND GOWN CHANGED PT HAD MISHAP WITH URINAL. POSITIONED FOR COMFORT.
[2017-04-09] VITALS: BP 114/81
--- NOTE | 2017-04-09 00:05 | NUR ---
PT CAME OUT IN THE HALLWAY CONFUSED...HE HAD PULLED OUT HIS IV, PULL OUT HIS NG TUBE, AND STRIPPED OFF HIS GOWN AND TELEMETRY STICKERS. VERY CONFUSED AND STATES HE AWOKE TO HEARING ALARMS SOUNDING AND WAS FRIGHTENED. REFUSING TO HAVE IV / OR NG TUBE REPLACED...PACING IN THE ROOM AND REMAINING VERY CONFUSED. CALLED DR JEFF IN THE ER AND RECEIVED ORDER FOR ATIVAN 2 MG IM.
--- NOTE | 2017-04-09 00:20 | NUR ---
GAVE ATIVAN 2 MG IM TO LEFT VENTRALGLUTEAL. REPLACED IV TO LEFT FA USING 20 GUAGE CATHETER IN ONE STICK. IV FLUIDS RE-STARTED. REPLACED TELEMETRY LEADS.
--- NOTE | 2017-04-09 00:35 | NUR ---
1ST ATTEMPT TO PLACE NG TUBE UNSUCCESSFUL AND PT VERY AGGITATED AND MOVING ALOT. WILL TRY AGAIN WHEN PT CALMS DOWN.
--- NOTE | 2017-04-09 00:45 | NUR ---
16F NG TUBE PLACED BY MARLENY PHILLIPS LPN. ABDOMINAL XRAY ORDERED TO VERIFY PLACEMENT.
--- NOTE | 2017-04-09 01:12 | NUR ---
GAVE DILAUDID 0.5 MG IVP FOR PAIN AT LEVEL 5/10 IN BACK AND ABDOMEN. WILL CONTINUE TO MONITOR FOR NEEDS.
--- NOTE | 2017-04-09 01:26 | NUR ---
XRAY FINDINGS: TUBE IS LOOPED AND DIRECTED SUPERIORLY WITHIN THE ESOPHAGUS. REMOVED NG TUBE...PT WANTS TO WAIT TILL AM TO TALK TO MD ABOUT NG TUBE NECCESSITY.
[2017-04-09 04:00] VITALS: BP 144/83
[2017-04-09 04:48] LABS: BASOPHILS 0 % (0-2); EOSINOPHILS 0 % (0-7); HEMATOCRIT 33.4 % (42.0-54.0); HEMOGLOBIN 10.9 g/dL (13.5-17.5); IMMATURE GRANULOCYTES 0.5 % (0-5); LYMPHOCYTES 4.6 % (15-50); MCH 26.9 pg (26.0-34.0); MCHC 32.6 g/dL (31.0-37.0); MCV 82.5 fL (80.0-100.0); MONOCYTES 6.4 % (2-11); NEUTROPHILS 88.5 % (40-80); PLATELET COUNT 596 10x3/uL (130-400); RBC 4.05 10x6/uL (4.20-6.10); RDW 13.7 % (11.5-14.5); WBC 15.5 10x3/uL (4.8-10.8)
[2017-04-09 05:22] LABS: ALBUMIN 1.7 g/dL (3.4-5.0); ANION GAP 14.5 mmol/L (8-16); BILIRUBIN - TOTAL 0.32 mg/dL (0.2-1.3); CALCIUM 8.2 mg/dL (8.5-10.1); CARBON DIOXIDE 22.5 mmol/L (21.0-32.0); CREATININE - SERUM 1.4 mg/dL (0.6-1.3); PROTEIN - SERUM 6.3 g/dL (6.4-8.2)
--- NOTE | 2017-04-09 07:02 | NUR ---
REPORT RECIEVED, ASSUMED CARE OF PT. PT RESTING IN BED, EASILY AROUSED, NO SIGNS OF ACUTE DISTRESS. L WRIST IV INFUSING FLUIDS ORDERED, DRSG CLEAN, DRY AND INTACT. PT REFUSES NG TUBE PLACEMENT REPORTED, REQUESTS TO SPEAK WITH THE DR FIRST. ABD DISTENTION NOTED. TELEMETRY IN PLACE, 126 BPM, SINUS TACH WITH PVC'S. NO COMPLAINTS AT THIS TIME. BED IN LOWEST POSITION, SIDE RAILS UP X 2, CALL LIGHT WITHIN REACH.
[2017-04-09 07:23] LABS: ALPHA FETOPROTEIN -(TUMOR MRK) 2.4 ng/mL (0.0-8.3)
[2017-04-09 08:50] LABS: MAGNESIUM - SERUM 2.1 mg/dL (1.8-2.4)
--- NOTE | 2017-04-09 09:14 | NUR ---
NUTRITION F/U LABS REVIEWED. MAG AND PHOS ADDED TO AM LABS. TPN ORDERS WRITTEN PER MD CONSULT. WILL RUN @ 40 CC/HR AND INCREASE RATE ON TUESDAY IF APPROPRIATE. RD FOLLOWING
[2017-04-09 09:45] VITALS: BP 115/82
[2017-04-09 13:04] VITALS: BP 123/87
[2017-04-09 16:32] VITALS: BP 117/87
--- NOTE | 2017-04-09 19:00 | NUR ---
REPORT RECEIVED AND CARE OF PT ASSUMED. PT LYING IN SEMI [place]OUIS'S POSITION TALKING ON THE PHONE. ABDOMEN VERY DISTENDED AND PT C/O TENDERNESS ON BOTH SIDES OF ABDOMEN. IV IN LEFT WRIST PATENT WITH NS INFUSING AT 150 ML / HR, AND PROCALIMINE INFUSING AT 75 ML / HR. WILL MONITOR CL[place]LEY FOR NEEDS.
[2017-04-09 20:00] VITALS: BP 102/72
--- NOTE | 2017-04-09 20:12 | NUR ---
HS MEDICATIONS GIVEN TO INCLUDE DILAUDID 0.5 MG IVP PER PT REQUEST FOR PAIN. WILL CONTINUE TO MONITOR FOR NEEDS. CALL LIGHT WITHIN REACH.
--- NOTE | 2017-04-09 20:30 | NUR ---
PT WORRIED ABOUT HAVING URGENCY TO USE RESTROOM....SET UP BSC WITH WIPES FOR PT TO USE...HE FEELS BETTER ABOUT NOT HAVING AN ACCIDENT. WILL CONTINUE TO MONITOR FOR NEEDS.
--- NOTE | 2017-04-09 22:07 | NUR ---
GAVE DILAUDID AND ZOFRAN FOR C/O PAIN AND NAUSEA, PER PRN ORDERS. WILL MONITOR FOR EFFECTIVENESS. SIDE RAILS UP X2 FOR SAFETY.
[2017-04-10] VITALS (14 sets, daily range): BP systolic 97–170; BP diastolic 57–103
--- NOTE | 2017-04-10 03:00 | NUR ---
ATTEMPTED TO PLACE NG TUBE PER PT REQUEST. PT VERY TENSE...UNABLE TO SUCCESSFULLY PLACE NG TUBE. PT STATES HE IS GOING TO ASK MD IF HE CAN HAVE A SEDATIVE TODAY TO HAVE NG PLACED.
--- NOTE | 2017-04-10 04:57 | NUR ---
GAVE DILAUDID PER PT REQUEST FOR PAIN. WILL CONTINUE TO MONITOR FOR NEEDS.
[2017-04-10 05:20] LABS: BASOPHILS 0 % (0-2); EOSINOPHILS 0.2 % (0-7); HEMATOCRIT 33.2 % (42.0-54.0); HEMOGLOBIN 10.8 g/dL (13.5-17.5); IMMATURE GRANULOCYTES 0.6 % (0-5); LYMPHOCYTES 6.1 % (15-50); MCH 27.1 pg (26.0-34.0); MCHC 32.5 g/dL (31.0-37.0); MCV 83.2 fL (80.0-100.0); MONOCYTES 9.4 % (2-11); NEUTROPHILS 83.7 % (40-80); PLATELET COUNT 519 10x3/uL (130-400); RBC 3.99 10x6/uL (4.20-6.10); RDW 13.8 % (11.5-14.5); WBC 12.4 10x3/uL (4.8-10.8)
[2017-04-10 05:41] LABS: ALBUMIN 1.6 g/dL (3.4-5.0); ALKALINE PHOSPHATASE 43 U/L (46-116); ALT (SGPT) 13 U/L (10-68); CALC OSMOLALITY 274 mosm/kg (275-300); CARBON DIOXIDE 21.9 mmol/L (21.0-32.0); CHLORIDE - SERUM 102 mmol/L (98-107); GLUCOSE 112 mg/dL (74-106); MAGNESIUM - SERUM 2.2 mg/dL (1.8-2.4); POTASSIUM - SERUM 4.9 mmol/L (3.5-5.1); SODIUM 134 mmol/L (136-145); UREA NITROGEN 29 mg/dL (7-18)
[2017-04-10 05:42] LABS: CREATININE - SERUM 0.9 mg/dL (0.6-1.3); PHOSPHOROUS 2.8 mg/dL (2.5-4.9); eGFR NON AFRICAN AMERICAN 89 mL/min (90-120)
--- NOTE | 2017-04-10 08:50 | NUR ---
DR DELANO CAMPBELL FOR UNCONTROLLED PAIN.
--- NOTE | 2017-04-10 09:00 | NUR ---
DR. WICK RETURNED CALL, INCREASED DILAUDID TO 1 MG Q 2 HRS PRN PAIN. ADVISED ME TO CALL DR. DURHAM FOR POSSIBLE SURGERY CONSULT.
--- NOTE | 2017-04-10 09:05 | NUR ---
DR HERMINIO CAMPBELL, STATED "HE IS NOT MY PATIENT."
--- NOTE | 2017-04-10 15:40 | NUR ---
PT RETURNED TO FLOOR FROM IR. PARACENTESIS COMPLETE. RLQ BANDAGE INTACT. 2L O2 VIA NASAL CANNULA IN PLACE. NO SIGNS OF ACUTE DISTRESS.
--- NOTE | 2017-04-10 19:00 | NUR ---
REPORT RECEIVED AND CARE OF PT ASSUMED. PT LYING IN SEMI LOUIS'S POSITION WATCHING TV. O2 IN USE AT 2L VIA NC. IV IN LEFT WRIST PATENT WITH NS INFUSING AT 150 ML / HR. PROCALAMINE INFUSING AT 75 ML / HR, AND WASH WORKER / DILAUDID WASH WORKER FOR PAIN CONTROL. TELEMETRY IN USE AND PT READING [address] AT THIS ASSESSMENT. WILL MONITOR CLOSELY FOR NEEDS.
--- NOTE | 2017-04-10 20:50 | NUR ---
HS MEDICATIONS GIVEN. ASSISTED PT UP TO USE BSC. POSITIONED BACK IN BED FOR COMFORT.
[2017-04-11] VITALS: BP 104/75
[2017-04-11 04:00] VITALS: BP 119/86
[2017-04-11 05:20] LABS: BASOPHILS 0 % (0-2); EOSINOPHILS 0.1 % (0-7); HEMATOCRIT 33.8 % (42.0-54.0); IMMATURE GRANULOCYTES 0.6 % (0-5); LYMPHOCYTES 6.7 % (15-50); MCHC 32.5 g/dL (31.0-37.0); MCV 82.8 fL (80.0-100.0); MEAN PLATELET VOLUME 8.7 fL (7.4-10.4); MONOCYTES 7.6 % (2-11); RBC 4.08 10x6/uL (4.20-6.10); RDW 13.7 % (11.5-14.5); WBC 11.8 10x3/uL (4.8-10.8)
[2017-04-11 05:26] LABS: PLATELET COUNT 392 10x3/uL (130-400)
[2017-04-11 05:41] LABS: ALBUMIN 1.9 g/dL (3.4-5.0); ALKALINE PHOSPHATASE 42 U/L (46-116); ALT (SGPT) 15 U/L (10-68); CALC OSMOLALITY 273 mosm/kg (275-300); CARBON DIOXIDE 23.2 mmol/L (21.0-32.0); CHLORIDE - SERUM 104 mmol/L (98-107); CREATININE - SERUM 0.9 mg/dL (0.6-1.3); GLUCOSE 121 mg/dL (74-106); POTASSIUM - SERUM 4.4 mmol/L (3.5-5.1); PROTEIN - SERUM 5.6 g/dL (6.4-8.2); SODIUM 135 mmol/L (136-145); UREA NITROGEN 22 mg/dL (7-18); eGFR NON AFRICAN AMERICAN 89 mL/min (90-120)
--- NOTE | 2017-04-11 07:00 | NUR ---
REPORT RECIEVED ASSUMED CARE. PATIENT IN BED WITH IV INTACT. NO COMPLAINTS AT THIS TIME. CALL LIGHT WITHIN REACH.
[2017-04-11 09:40] VITALS: BP 137/80
--- NOTE | 2017-04-11 11:04 | NUR ---
NUTRITION F/U CHART REVIEWED. PT NOW ON PROCALAMINE @ 75 CC/HR. NURSING REPORTS POSSIBLE PORT PLACEMENT TODAY. SPOKE WITH PHARMACY AND TPN ORDER NOW ON "HOLD". WILL CONTINUE TO MONITOR PT PROGRESS. RD FOLLOWING
[2017-04-11 11:45] VITALS: BP 128/86
[2017-04-11 16:11] VITALS: BP 131/75
--- NOTE | 2017-04-11 18:45 | NUR ---
PATIENT SITTING UP ON SIDE OF THE BED WITH NO COMPLAINTS. IV INTACT. FAMILY AT BEDSIDE. CALL LIGHT WITHIN REACH.
--- NOTE | 2017-04-11 19:25 | NUR ---
RECIEVED SHIFT REPORT. PT IS LYING IN BED. ALERT AND ORIENTED AND ABLE TO VERBALIZE NEEDS. IV IS PATENT AND FLUIDS ARE RUNNING PER ORDER. O2 @ 2 PER NASAL CANNULA. PT IS AMBULATORY WITH ASSISTANCE. PT STATES PAIN IS 6/10 WITH DISMANTLER PUMP. NO NEEDS ARE VERBALIZED AT THIS TIME. WILL CONTINUE TO MONITOR. SIDE RAILS ARE UP X 2. BED IS IN LOWEST POSITION. CALL LIGHT IS WITHIN REACH.
--- NOTE | 2017-04-11 20:21 | NUR ---
SHIFT ASSESSMENT COMPLETED. NIGHT MEDS GIVEN PER ORDER. PT REFUSED SUPPOSITORY. LACTULOSE NOT GIVEN DUE TO NPO STATUS. NO NEEDS ARE VOICED. WILL MONITOR. SIDE RAILS X 2. BED LOW. CALL LIGHT IN REACH.
[2017-04-12] VITALS (9 sets, daily range): BP systolic 102–132; BP diastolic 72–89
--- NOTE | 2017-04-12 07:00 | NUR ---
REPORT RECIEVED ASSUMED CARE. PATIENT IN BED WITH IV INTACT. NO COMPLAINTS AT THIS TIME. CALL LIGHT WITHIN REACH.
[2017-04-12 07:40] LABS: BASOPHILS 0.1 % (0-2); EOSINOPHILS 0.7 % (0-7); HEMATOCRIT 34.7 % (42.0-54.0); HEMOGLOBIN 11.4 g/dL (13.5-17.5); IMMATURE GRANULOCYTES 0.7 % (0-5); MCH 27.1 pg (26.0-34.0); MCHC 32.9 g/dL (31.0-37.0); MCV 82.4 fL (80.0-100.0); MEAN PLATELET VOLUME 9.3 fL (7.4-10.4); MONOCYTES 9.4 % (2-11); NEUTROPHILS 80.1 % (40-80); PLATELET COUNT 375 10x3/uL (130-400); RBC 4.21 10x6/uL (4.20-6.10); WBC 12.1 10x3/uL (4.8-10.8)
[2017-04-12 08:11] LABS: ALBUMIN 1.7 g/dL (3.4-5.0); ALKALINE PHOSPHATASE 39 U/L (46-116); ALT (SGPT) 13 U/L (10-68); CALC OSMOLALITY 269 mosm/kg (275-300); CALCIUM 8.1 mg/dL (8.5-10.1); CARBON DIOXIDE 22.9 mmol/L (21.0-32.0); CHLORIDE - SERUM 102 mmol/L (98-107); CREATININE - SERUM 0.8 mg/dL (0.6-1.3); GLUCOSE 118 mg/dL (74-106); POTASSIUM - SERUM 4.8 mmol/L (3.5-5.1); PROTEIN - SERUM 5.6 g/dL (6.4-8.2); SODIUM 133 mmol/L (136-145); UREA NITROGEN 20 mg/dL (7-18); eGFR NON AFRICAN AMERICAN > 90 mL/min (90-120)
--- NOTE | 2017-04-12 08:45 | NUR ---
ASSESSMENT COMPLETE, VS STABLE. IV INTACT. NO COMPLAINTS AT THIS TIME. ABDOMIN DISTENDED AND FIRM. PATIENT STATES HARD TO BREATH AT TIMES. O2 ON 2 L. CLAIM AUDITOR FOR PAIN. REFUSES BSCDS. CALL LIGHT WITHIN REACH.
--- NOTE | 2017-04-12 12:45 | NUR ---
PATIENT SITTING UP IN CHAIR. NO COMPLAINTS. IV INTACT. CALL LIGHT WITHIN REACH.
--- NOTE | 2017-04-12 15:22 | NUR ---
PATIENT RECIEVED PREOP MEDS AT THIS TIME. IV INTACT. NO COMPLAINTS. OR TRANSPORT TOOK PATIENT TO OR AT THIS TIME. PATIENT CALLED DAUGHTER TO LET HER KNOW.
--- NOTE | 2017-04-12 18:10 | NUR ---
TO ROOM VIA BED FROM RECOVERY, VSS, AFIB SHOWING ON MONITOR, DENIES PAIN, 02 BY NR, SAT 97%, DROWSEY, ANSWERS TO VERBAL COMMANDS, RIGHT UPPER CHEST WITH PORT , DRESSING CDI, RIGHT FLANK/SIDE WITH PLUREX DRAIN SITE, DTESSING CDI, ACCLAMATED TO ROOM, STAT ABG'S DRAWN BY RT, BROTHER CALLED TO BEDSIDE, STATUS UPDATED AND PASSWORD OBTAIN, HE CALLED AND NOTIFIED OTHER FAMILY MEMBERS OF STATUS. PASSWORD: [facility]
--- NOTE | 2017-04-12 19:15 | NUR ---
ASSESSMENT COMPLETE. UNCONTROLLED AFIB WITH OCCASIONAL PVC'S SHOWING ON MONITOR. RR SHALLOW; SOB. TACHYPNEA NOTED. AAO. BOWEL SOUNDS HYPERRESONANT. ASCITES NOTED. PERRLA. PLEURX SITE TO RIGHT LOWER ABD; DRESSING CDI. C/O PAIN AT ABD 6/10. CRACKLES NOTED BILATERALLY IN UPPER LOBES; DIMINISHED BILATERALLY IN LOWER LOBES. PORT NOTED TO RIGHT CHEST; PACEMAKER TO LEFT CHEST. BUTTOCKS/BACK REDDENED; BLANCHABLE. READJUSTED FOR COMFORT.
--- NOTE | 2017-04-12 19:45 | NUR ---
SPOKE WITH DR. SEWELL. ORDERS RECEIVED.
--- NOTE | 2017-04-12 20:15 | NUR ---
PT SWITCHED TO OXYMIZER 15L.
--- NOTE | 2017-04-12 20:58 | NUR ---
DROP FORGER HELPER INITIATED. HYDROMORPHONE 0.4MG Q10. PER ORDERS. SEE ORDERS FOR DETAILS.
--- NOTE | 2017-04-12 22:30 | NUR ---
PT TITRATED OXYMIZER TO 4L.
--- NOTE | 2017-04-12 22:45 | NUR ---
DR. RODRIGUEZ AT BEDSIDE.
--- NOTE | 2017-04-12 23:14 | NUR ---
PT SWITCHED TO 4L VIA NC.
--- NOTE | 2017-04-12 23:20 | NUR ---
PT SWALLOWING WNL; WATER OFFERED.
--- NOTE | 2017-04-12 23:25 | NUR ---
REASSESSMENT COMPLETE. NO ACUTE CHANGES FROM PREVIOUS ASSESSMENT. VSS. NO DISTRESS NOTED. ON 4L VIA NC.
[2017-04-13] VITALS (20 sets, daily range): BP systolic 93–118; BP diastolic 63–92
--- NOTE | 2017-04-13 03:30 | NUR ---
REASSESSMENT COMPLETE. NO ACUTE CHANGES FROM PREVIOUS ASSESSMENT. ON 2L VIA NC.
[2017-04-13 04:35] LABS: BASOPHILS 0 % (0-2); EOSINOPHILS 0.1 % (0-7); HEMATOCRIT 34.7 % (42.0-54.0); HEMOGLOBIN 11.4 g/dL (13.5-17.5); LYMPHOCYTES 7.8 % (15-50); MCHC 32.9 g/dL (31.0-37.0); MCV 82.2 fL (80.0-100.0); MEAN PLATELET VOLUME 9.2 fL (7.4-10.4); MONOCYTES 8.9 % (2-11); NEUTROPHILS 82.2 % (40-80); PLATELET COUNT 317 10x3/uL (130-400); RBC 4.22 10x6/uL (4.20-6.10); WBC 12.5 10x3/uL (4.8-10.8)
[2017-04-13 05:02] LABS: ALBUMIN 1.7 g/dL (3.4-5.0); ALKALINE PHOSPHATASE 39 U/L (46-116); ALT (SGPT) 13 U/L (10-68); CALC OSMOLALITY 268 mosm/kg (275-300); CALCIUM 7.9 mg/dL (8.5-10.1); CARBON DIOXIDE 23.7 mmol/L (21.0-32.0); CHLORIDE - SERUM 102 mmol/L (98-107); CREATININE - SERUM 0.9 mg/dL (0.6-1.3); GLUCOSE 104 mg/dL (74-106); POTASSIUM - SERUM 4.5 mmol/L (3.5-5.1); PROTEIN - SERUM 5.5 g/dL (6.4-8.2); SODIUM 133 mmol/L (136-145); UREA NITROGEN 20 mg/dL (7-18); eGFR NON AFRICAN AMERICAN 89 mL/min (90-120)
--- NOTE | 2017-04-13 10:15 | NUR ---
AWAKE AND ALERT SKIN WARM AND DRY, DRESSING RIGHT SHOULDER AREA AND RIGHT ABD DRY AND INTACT. ABD DRAINAGE TUBE CLAMPED AND SECURE. BILATERAL LUNG SOUNDS CLEAR AND EQUAL ENCOURAGED TO TAKE DEEP BREATH AND COUGH TO USE PAIN MEDS TO. ALLOW HIM TO DO THIS. VERBALIZED UNDERSTANDING. ABD DISTENDED HE ADMITS IT FEELS TIGHT AND TENDER. VOIDING SMALL AMOUNTS OF CLEAR SENDY URINE IN URINAL. IV LEFT FOREARM WITHOUT REDNESS OR SWELLING. SCD ON LOWER LEGS CONNECTED TO MACHINE AND WORKING. TALKED WITH DR. MUHAMMAD HE DRAINED HIS ABD YESTERDAY. OF [address] RODRIGUEZ OK TO DC PROTOXIC. MONITOR ST WITH FREQ PVC AND PAC'S. DR. SEWELL HERE EXAM DONE. PT CONSULTS PATIENT STATES WHEN HE GETS UP HE IS WEAK AND DIZZY. PATIENT COULD NOT BELIEVE HOW WEAK HE WAS ALREADY.
--- NOTE | 2017-04-13 10:57 | NUR ---
SCHEDULED FOR CTA EXPLAINED THE PROCEDURE TO PATIENT AND THAT HE IS NPO. LEFT FOREARM IV IS 20 GAUGE, VERBALIZED UNDERSTANDING OF PROCEDURE TO ELIMINIATE PUL. EMBOLUS.
--- NOTE | 2017-04-13 12:56 | NUR ---
Nutrition Follow Up: Chart reviewed. Pt diet has been advanced to full liquids per GI. +BM 04/12/17. Wt loss since admit noted. Labs reviewed. Meds noted including Procalamine @ 75 ml/hr providing 441 kcal and 52 g protein. Pt also receiving 20% Lipids 250 ml every 48 hours providing 250 kcal/d. Rec continue advancing ZAYRA. Rec d/c lipids and Procalamine when po intake improves. RD following.
--- NOTE | 2017-04-13 13:33 | NUR ---
* Is the patient Alert and Oriented? Yes 0 * How many steps to enter\exit or inside your home? 5 0 * PCP Dr. Adkins 0 * Pharmacy [facility] the [facility] 0 * Preadmission Environment Home Alone 0 * ADLs Independent 0 * Equipment Other 0 * Other Equipment Walking Stick 0 * List name and contact numbers for known caregivers / representatives who currently or will assist patient after discharge: Daughter - Alma [place] [phone] 0 * Additional services required to return to the preadmission environment? No 0 * Can the patient safely return to the preadmission environment? Yes 0 * Has this patient been hospitalized within the prior 30 days at any hospital? No Patient Name: MICHEL MILLS Admission Status: ER Accout number: [id number] Admission Date: 04-07-2017 : 1945 Admission Diagnosis:UNSPECIFIED INTESTINAL OBSTRUCTION Attending: CEASAR SHINE Current LOS: 6 Planned Disposition: Home Primary Insurance: MEDICARE A & B Discharge Planning Comments: CM met with patient to assess dc plans/needs. Patient states he lives alone and is independent with all ADL's & IADL's. He uses a walking stick due to previous back injury. 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 At dc, he plans to return home. No needs identified or verbalized at this time. CM will follow. Piercing Mill Operator: Diamond Moreira
--- NOTE | 2017-04-13 18:39 | NUR ---
CALL DR AVILEZ. OK GIVEN TO GIVEN CHEMO TOMORROW. PATIENT NOTIFIED. PATIENT UP IN CHAIR AT BEDSIDE PER PT. TOLERATED WELL CAN NOT STAND WELL
--- NOTE | 2017-04-13 19:00 | NUR ---
REPORT RECIEVED, SHIFT ASSESSMENT COMPLETE, PT IS ALERT AND ORIENTED, ON 6L NC WITH 97% O2 SAT, S1S2, CM-ST, PATENT LEFT FA PIV.... SEE IV FLOW SHEET, ABDOMEN IS DISTENDED/FIRM WITH ACTIVE BS, URINAL AT BEDSIDE, ALL PPP, VSS, CALL LIGHT IN REACH
--- NOTE | 2017-04-13 21:49 | NUR ---
RECIVED PT FROM ICU NURSE THONY. PT WAS TRANSFERRED TO CHAIR IN ROOM BECAUSE PT STATED HE TOLERATED SITTING UP BETTER THAN LYING DOWN, CALL LIGHT IS IN REACH, PT DENIES NEEDS AT THIS TIME, ASSUME PT CARE
--- NOTE | 2017-04-13 22:24 | NUR ---
PT DOCTOR PODIATRIC MEDICINE LIGHT READY TO GET IN BED, PT GETS UP AND WALKS FAIRLY WELL WITH NO ASSIST. WITH PT FOR SUPPORT IF NEEDED BUT HE WAS ADAMANT ABOUT DOING BY HIMSELF, BED IS IN LOW POSITION, CALL LIGHT IN REACH
[2017-04-14] VITALS (21 sets, daily range): BP systolic 87–110; BP diastolic 51–87
--- NOTE | 2017-04-14 03:06 | NUR ---
PT SENIOR NET ARCHITECT LIGHT FOR RESTROOM, WIRES TO IV POLE AND O2 WERE WRAPPED AROUND PTS IV POLE WHICH PREVENTED HIM FROM GOING INTO THE RESTROOM, ASSISTED PT WITH UNTANGLING WIRES AND ASKED PT TO [place] FOR ASSISTANCE BEFORE GETTING UP ESPECIALLY WITH ROOM BEING SO DARK. CALL LIGHT WITHIN REACH BED LOW WILL CONTINUE TO MONITOR
--- NOTE | 2017-04-14 05:44 | NUR ---
RESTING QUIET IN BED WITH A RAG OVER HIS FOREHEAD. RESPIRATIONS ARE EASY AND NO DISTRESS IS NOTED. THE BED IS LOW, RAILS UP X'S 2 WITH THE CALL LIGHT AT HAND.
[2017-04-14 05:56] LABS: BASOPHILS 0.1 % (0-2); EOSINOPHILS 0.1 % (0-7); HEMATOCRIT 36.5 % (42.0-54.0); IMMATURE GRANULOCYTES 0.9 % (0-5); LYMPHOCYTES 8.1 % (15-50); MCH 27.1 pg (26.0-34.0); MCHC 32.9 g/dL (31.0-37.0); MCV 82.4 fL (80.0-100.0); MEAN PLATELET VOLUME 9.3 fL (7.4-10.4); MONOCYTES 8.8 % (2-11); PLATELET COUNT 258 10x3/uL (130-400); RBC 4.43 10x6/uL (4.20-6.10); RDW 14.2 % (11.5-14.5); WBC 14.4 10x3/uL (4.8-10.8)
[2017-04-14 06:22] LABS: ALBUMIN 1.7 g/dL (3.4-5.0); ALKALINE PHOSPHATASE 48 U/L (46-116); ALT (SGPT) 14 U/L (10-68); BILIRUBIN - TOTAL 0.26 mg/dL (0.2-1.3); CALC OSMOLALITY 280 mosm/kg (275-300); CALCIUM 7.7 mg/dL (8.5-10.1); CARBON DIOXIDE 24.4 mmol/L (21.0-32.0); CHLORIDE - SERUM 104 mmol/L (98-107); CREATININE - SERUM 0.9 mg/dL (0.6-1.3); GLUCOSE 127 mg/dL (74-106); MAGNESIUM - SERUM 2.2 mg/dL (1.8-2.4); POTASSIUM - SERUM 4.6 mmol/L (3.5-5.1); SODIUM 138 mmol/L (136-145); UREA NITROGEN 20 mg/dL (7-18); eGFR NON AFRICAN AMERICAN 89 mL/min (90-120)
--- NOTE | 2017-04-14 07:03 | NUR ---
RECIEVED REPORT, ASSUMED CARE OF PT. NO COMPLAINTS AT THIS TIME, NO SIGNS OF ACUTE DISTRESS. BED IN LOWEST POSITION, SIDE RAILS UP X 2, CALL LIGHT WITHIN REACH.
--- NOTE | 2017-04-14 13:44 | NUR ---
LEUCOVIN 600MG IV START TO RIGHT INFUSAPORT. EXCELLENT BLOOD RETURN FROM PORT PRIOR TO INFUSION. CONNEECTED TO VITAL SIGN MACHINE-VS 106/87 P 121 R 20 SAT 90% 5LNS. YELLOW CAN IN ROOM FOR CHEMO. SIGNS X 2 PLACED TO DOUBLEFLUSH AND DOUBLE GLOVE.
--- NOTE | 2017-04-14 13:47 | NUR ---
port was accessed eariler at 1245 with 20ga x .75 in needle. policy followed per sterile procedure and biopatch in place
--- NOTE | 2017-04-14 15:55 | NUR ---
LEVUOUORIN COMPLETED. TOLERATED WITHOUT ANY SIDE EFFECTS NOTED. OXALIPLATIN 130 MG IVPB STARTED AFTER EXCELLENT BLOOD RETURN FROM RIGHT INFUSAPORT. VITAL SIGNS 97/61 P 114 R 20 OXYGEB 89% 5LNC. NO COMPLAINTS AT PRESENT. VISITOR AT BEDSIDE. CALL LIGHT IN REACH
--- NOTE | 2017-04-14 16:23 | NUR ---
BP HAS CHANGED FROM 97/61 TO 87/51. NS INCREASED FROM 30CC/HR TO 50CC?HR. NO COMPLAINTS
[2017-04-15] VITALS (15 sets, daily range): BP systolic 89–116; BP diastolic 57–77
[2017-04-15 05:34] LABS: BASOPHILS 0.1 % (0-2); EOSINOPHILS 0 % (0-7); HEMATOCRIT 33.1 % (42.0-54.0); IMMATURE GRANULOCYTES 0.7 % (0-5); LYMPHOCYTES 7.4 % (15-50); MCH 27.4 pg (26.0-34.0); MCHC 33.2 g/dL (31.0-37.0); MCV 82.5 fL (80.0-100.0); MEAN PLATELET VOLUME 9.8 fL (7.4-10.4); MONOCYTES 7.4 % (2-11); NEUTROPHILS 84.4 % (40-80); PLATELET COUNT 273 10x3/uL (130-400); RBC 4.01 10x6/uL (4.20-6.10); RDW 14.5 % (11.5-14.5); WBC 15.5 10x3/uL (4.8-10.8)
[2017-04-15 05:44] LABS: ALBUMIN 1.6 g/dL (3.4-5.0); ALKALINE PHOSPHATASE 41 U/L (46-116); ALT (SGPT) 11 U/L (10-68); CALC OSMOLALITY 277 mosm/kg (275-300); CHLORIDE - SERUM 105 mmol/L (98-107); CREATININE - SERUM 0.9 mg/dL (0.6-1.3); GLUCOSE 154 mg/dL (74-106); MAGNESIUM - SERUM 2.1 mg/dL (1.8-2.4); POTASSIUM - SERUM 4.6 mmol/L (3.5-5.1); PROTEIN - SERUM 5.5 g/dL (6.4-8.2); SODIUM 136 mmol/L (136-145); UREA NITROGEN 21 mg/dL (7-18); eGFR NON AFRICAN AMERICAN 89 mL/min (90-120)
--- NOTE | 2017-04-15 05:52 | NUR ---
ASSESSED AT THE BEGINNING OF THE SHIFT. PT IS ALERT AND ORIENTED, HE HAS A GREEN CATH AND IS ABLE TO TELL US IF HE NEEDS ANYTHING. WE STARTED HIS FLUCROURACIL GIVEN AFTER BLOOD CHECK AND IT WAS INFUSED OVER ABOUT 8 MINUTES. THEN THE LEUCOVORIN WAS STARTED AT 22 CC PER HR AND EVERY HR HE WAS CHECKED FOR A GOOD BLOOD RETURN AND VITAL SIGNS. HE HAS HAD NO COMPLAINTS VOICED AND STATED HE EVEN SLEPT FOR A WHILE DURING THE NIGHT. THE BED IS LOW, RAILS UP X'3 AND THE CALL LIGHT IS AT HAND.
--- NOTE | 2017-04-15 07:07 | NUR ---
REPORT RECIEVED, ASSUMED CARE OF PT. RESTING IN BED. TELEMETRY IN PLACE SR. PLEUREX CATHETER IN PLACE. GREEN CATHETER IN PLACE. R PORT DRSG CLEAN, DRY AND INTACT, CHEMO INFUSING ORDERED. L FOREARM IV INFUSING ORDERED, DRSG C/D/I. MAINTENANCE WORKER HOUSE TRAILER ORDERED. BED IN LOWEST POSITION, SIDE RAILS UP X 2, CALL LIGHT WITHIN REACH.
--- NOTE | 2017-04-15 07:33 | NUR ---
BLOOD RETURN CONFIRMED VIA RIGHT PORT.THEM CHEMO RESUMED ORDERED.
--- NOTE | 2017-04-15 08:30 | NUR ---
BLOOD RETURN CONFIRMED VIA RIGHT PORT.CHEMO RESUMED ORDERED
--- NOTE | 2017-04-15 09:30 | NUR ---
UNABLE TO INFUSE LIPIDS ORDERED, PORT HAS CHEMO INFUSING. WILL CONTACT DR. RODRIGUEZ.
--- NOTE | 2017-04-15 09:30 | NUR ---
BLOOD RETURN CONFIRMED RIGHT PORT,CHEMO RESUMED ORDERED.
--- NOTE | 2017-04-15 10:12 | NUR ---
NUTRITION F/U CHART REVIEWED. PT TOLERATING REG SOFT DIET WITH 50 % INTAKE BREAKFAST. CONTINUES PROCALAMINE @ 75 CC/HR. 20% INTRALIPIDS//[address] FOLLOWING
--- NOTE | 2017-04-15 10:24 | NUR ---
blood returned checked per right infusaport-excellent return. chemo running at 22 cc/hr. no complaints of pain or nausea this am
--- NOTE | 2017-04-15 11:29 | NUR ---
right infusaport checked for blood return. excellent returned and flushed. chemo restarted
--- NOTE | 2017-04-15 11:30 | NUR ---
LIPIDS ON HOLD UNTIL CURRENT CHEMO INFUSION COMPLETE PER DR. RODRIGUEZ.
--- NOTE | 2017-04-15 12:31 | NUR ---
BLOOD RETURN CONFIRMED VIA RIGHT PORT. CHEMO RESUMED ORDERED.
--- NOTE | 2017-04-15 13:24 | NUR ---
chemo paused. right infusport aspirated to check blood flow with excellent return. flushed and chemo restarted. no complaints at present
--- NOTE | 2017-04-15 15:50 | NUR ---
late entry-chemo paused and right infusaport aspirated for excellent blood return and flushed. chemo restarted. no complaints
--- NOTE | 2017-04-15 16:42 | NUR ---
PATIENT WOULD LIKE TO USE [facility] AT DISCHARGE, ROBERT SIGNED PATIENT STATED THAT HIS FRIEND ALEJANDRO BECERRA WILL BE STAYING WIHT HIM AND THAT HE IS TRYING TO GET HIS DAUGHTER TO STAY WITH JEREMIAS ALSO WHEN HE GOES HOME. CM WILL CONTINUE TO FOLLOW AND ASSIST WITH DISCHARGE PLANNING NEEDS
--- NOTE | 2017-04-15 17:30 | NUR ---
GOOD BLOOD RETURN FROM RIGHT PORT,CHEMO RESUMED ORDERED
--- NOTE | 2017-04-15 20:30 | NUR ---
AWAKE,ALERT,NO COMPLAITNS VOICED AT PRESENT.HAS CHEMO INFUSING TO RIGHT PORT.TOLERATING WELL.MAINTENANCE TECHNICIAN 2ND SHIFT DILAUDID IN USE FOR PAIN CONTROL.GREEN INTACT.CL IN REACH.
[2017-04-16] VITALS (13 sets, daily range): BP systolic 91–133; BP diastolic 51–76
--- NOTE | 2017-04-16 02:30 | NUR ---
ASSESSED AT THE BEGINNING OF THE SHIFT. CHEMO IS AND HAS BEEN RUNNING WITHOUT ANY SIDE EFFECTS NOTED. DR RODRIGUEZ WAS VISITING HIM JUST BEFORE MIDNIGHT. WE HAVE CHECKED FOR GOOD BLOOD RETURN EVERY HOUR AND WILL CONTINUR. HIS VITAL SIGNS HAVE ALSO BEEN CHECKED EACH HR. HE IS ASLEEP WITH EASY RESPIRATIONS AND NO SIGNS OF DISTRESS NOTED.
[2017-04-16 04:38] LABS: BASOPHILS 0 % (0-2); EOSINOPHILS 0.4 % (0-7); HEMOGLOBIN 10.6 g/dL (13.5-17.5); IMMATURE GRANULOCYTES 0.5 % (0-5); LYMPHOCYTES 8.5 % (15-50); MCH 27.1 pg (26.0-34.0); MCHC 33.1 g/dL (31.0-37.0); MCV 81.8 fL (80.0-100.0); MEAN PLATELET VOLUME 9.6 fL (7.4-10.4); MONOCYTES 5.6 % (2-11); PLATELET COUNT 245 10x3/uL (130-400); RBC 3.91 10x6/uL (4.20-6.10); RDW 14.7 % (11.5-14.5); WBC 13.3 10x3/uL (4.8-10.8)
[2017-04-16 04:59] LABS: ALBUMIN 1.5 g/dL (3.4-5.0); ALKALINE PHOSPHATASE 39 U/L (46-116); ALT (SGPT) 12 U/L (10-68); CALC OSMOLALITY 268 mosm/kg (275-300); CALCIUM 7.4 mg/dL (8.5-10.1); CARBON DIOXIDE 24.9 mmol/L (21.0-32.0); CHLORIDE - SERUM 104 mmol/L (98-107); CREATININE - SERUM 0.7 mg/dL (0.6-1.3); GLUCOSE 116 mg/dL (74-106); MAGNESIUM - SERUM 1.9 mg/dL (1.8-2.4); PROTEIN - SERUM 5.2 g/dL (6.4-8.2); SODIUM 132 mmol/L (136-145); UREA NITROGEN 22 mg/dL (7-18); eGFR NON AFRICAN AMERICAN > 90 mL/min (90-120)
--- NOTE | 2017-04-16 05:31 | NUR ---
AWAKE,NO COMPLAINTS. CONTINUES WITH CHEMO. TOLERATING WELL.LARGE ENGINE ASSEMBLER IN USE FOR PAIN CONTROL. CL IN REACH.
--- NOTE | 2017-04-16 07:30 | NUR ---
ASSESSMENT COMPLETE. O2 6L NC IN USE. R PORT PATENT.FLUORAURACIL INFUSING AT 22 CC/HR VIA PUMP. IV TO R HAND PATENT. NS INFUSING AT 30 CC/HR AND PROCALAMINE INFUSING AT 75 CC/HR VIA PUMP. PRODUCTION TEAM MEMBER DILAUDID 0.4-10-4 IN USE FOR PAIN CONTROL. PLEURX DRAIN TO R UPPER ABDOMEN. GREEN PATENT DRAINING YELLOW URINE. DISTRIBUTION DESIGNER SHOWING ST WITH PACED BEATS 101 PER TECH.
--- NOTE | 2017-04-16 09:30 | NUR ---
GOOD BLOOD RETURN NOTED TO R PORT.
--- NOTE | 2017-04-16 11:45 | NUR ---
100 CC'S DRAINED FROM PLEURX WITHOUT DIFFICULTY.TOLERATING PROCEDURE WELL. REPORTS DECREASED PRESSURE TO ABDOMEN AND UNDER RIGHT RIBS.
--- NOTE | 2017-04-16 13:00 | NUR ---
GOOD BLOOD RETURN NOTED TO R PORT.
--- NOTE | 2017-04-16 19:30 | NUR ---
DRAINED 100CC OUT OF PT'S PLEUREX CATH. PATIENT DENIES OTHER NEEDS AT THIS TIME. BED IN LOWEST POSTITION AND CALL LIGHT WITHIN REACH. ENCOURAGED THE PATIENT TO CALL IF HE HAS NEEDS.
[2017-04-16 21:05] LABS: MACROPHAGES BF 2 %; NEUT - BF 2 %
--- NOTE | 2017-04-16 21:30 | NUR ---
PT RESTING IN BED WITH NO VISIBLE SIGNS OF DISTRESS AND DENIES NEEDS AT THIS TIME. BED IN LOWEST POSITION AND CALL LIGHT WITHIN REACH. ENCOURAGED THE PATIENT TO CALL IF HE HAS NEEDS.
[2017-04-17] VITALS: BP 109/71
[2017-04-17 04:00] VITALS: BP 113/74
[2017-04-17 05:01] LABS: BASOPHILS 0 % (0-2); EOSINOPHILS 0.6 % (0-7); HEMOGLOBIN 11.1 g/dL (13.5-17.5); IMMATURE GRANULOCYTES 0.5 % (0-5); LYMPHOCYTES 9.9 % (15-50); MCH 27.1 pg (26.0-34.0); MCHC 32.6 g/dL (31.0-37.0); MCV 82.9 fL (80.0-100.0); MEAN PLATELET VOLUME 9.7 fL (7.4-10.4); MONOCYTES 3.9 % (2-11); NEUTROPHILS 85.1 % (40-80); PLATELET COUNT 235 10x3/uL (130-400); RDW 14.8 % (11.5-14.5); WBC 10.3 10x3/uL (4.8-10.8)
[2017-04-17 05:25] LABS: ALBUMIN 1.6 g/dL (3.4-5.0); ALKALINE PHOSPHATASE 40 U/L (46-116); ALT (SGPT) 11 U/L (10-68); CALC OSMOLALITY 271 mosm/kg (275-300); CALCIUM 7.7 mg/dL (8.5-10.1); CARBON DIOXIDE 26.2 mmol/L (21.0-32.0); CHLORIDE - SERUM 104 mmol/L (98-107); CREATININE - SERUM 0.7 mg/dL (0.6-1.3); GLUCOSE 101 mg/dL (74-106); POTASSIUM - SERUM 4.5 mmol/L (3.5-5.1); PROTEIN - SERUM 5.6 g/dL (6.4-8.2); SODIUM 135 mmol/L (136-145); UREA NITROGEN 17 mg/dL (7-18); eGFR NON AFRICAN AMERICAN > 90 mL/min (90-120)
[2017-04-17 08:35] VITALS: BP 97/72
[2017-04-17 12:51] VITALS: BP 98/65
[2017-04-17 16:06] VITALS: BP 101/71
--- NOTE | 2017-04-17 19:49 | NUR ---
PATIENT SITTING UP IN THE CHAIR WITH NO VISIBLE SIGNS OF DISTRESS. UNHOOKED PATIENT'S PLEURX AND BROUGHT HIM ICE WATER PER HIS REQUEST. PATIENT STATED HE WILL SIT IN THE CHAIR "A LITTLE LONGER". PATIENT DENIES OTHER NEEDS AT THIS TIME. ENCOURAGED THE PATIENT TO CALL IF HE HAS NEEDS.
[2017-04-17 20:00] VITALS: BP 96/63
[2017-04-18 04:00] VITALS: BP 108/71
[2017-04-18 05:35] LABS: BASOPHILS 0 % (0-2); EOSINOPHILS 0.9 % (0-7); HEMATOCRIT 32.9 % (42.0-54.0); HEMOGLOBIN 10.8 g/dL (13.5-17.5); IMMATURE GRANULOCYTES 0.3 % (0-5); LYMPHOCYTES 10.9 % (15-50); MCH 26.6 pg (26.0-34.0); MCHC 32.8 g/dL (31.0-37.0); MEAN PLATELET VOLUME 10.2 fL (7.4-10.4); MONOCYTES 4.1 % (2-11); NEUTROPHILS 83.8 % (40-80); PLATELET COUNT 240 10x3/uL (130-400); RBC 4.06 10x6/uL (4.20-6.10); RDW 14.6 % (11.5-14.5); WBC 8.9 10x3/uL (4.8-10.8)
[2017-04-18 05:52] LABS: ALBUMIN 1.5 g/dL (3.4-5.0); ALKALINE PHOSPHATASE 38 U/L (46-116); ALT (SGPT) 12 U/L (10-68); CALC OSMOLALITY 266 mosm/kg (275-300); CALCIUM 7.6 mg/dL (8.5-10.1); CARBON DIOXIDE 23.7 mmol/L (21.0-32.0); CHLORIDE - SERUM 101 mmol/L (98-107); CREATININE - SERUM 0.6 mg/dL (0.6-1.3); GLUCOSE 104 mg/dL (74-106); MAGNESIUM - SERUM 1.9 mg/dL (1.8-2.4); POTASSIUM - SERUM 4.2 mmol/L (3.5-5.1); PROTEIN - SERUM 5.5 g/dL (6.4-8.2); SODIUM 132 mmol/L (136-145); UREA NITROGEN 17 mg/dL (7-18); eGFR NON AFRICAN AMERICAN > 90 mL/min (90-120)
--- NOTE | 2017-04-18 08:00 | NUR ---
ASSESSMENT PER FLOW SHEET.PT HAS SHORTNESS OF BREATH ON EXERT.UP TO CHAIR WITH PT.DENIES NEEDS.CALL LIGHT IN REACH.INSTRUCTED Q2 HOUR TURN.SMALL ERASER SIZED EXCORIATED AREA NOTED TO UPPER COCCYX.
[2017-04-18 08:57] VITALS: BP 113/74
[2017-04-18 12:56] VITALS: BP 97/68
--- NOTE | 2017-04-18 16:11 | NUR ---
SITTING UP IN CHAIR ALOT TODAY.STILL BECOMES VERY SHORT OF BREATH ON EXERT. DENIES NEEDS.FAMILY AT BEDSIDE
[2017-04-18 16:53] VITALS: BP 101/72
[2017-04-18 20:00] VITALS: BP 92/74
--- NOTE | 2017-04-18 23:52 | NUR ---
EMPTIED 100CC FROM PLEUPIX CATH AT SHIFT CHGE. BY DIANE ESTEBAN RN.DRSG, DRY AND INTACT TO RT. LATERAL SIDE OF ABD. ABD. LARGELY DISTENDED AND FIRM. VERY FEW BOWEL SOUNDS HEARD. DENIES NAUSEA. STATES HAD BM THIS MORNING. REFUSED SECOND DULCOLAX SUPP.STATES I'VE ONLY BEEN TAKING IT ONCE A DAY.02 6L NC SOME SOB OBSERVED ON MINIMAL ACTIVITY. WILL CONTINUE TO MONITOR FOR ANY CHGES. AND FOLLOW CURRENT PLAN OF CARE.
[2017-04-19 04:00] VITALS: BP 111/72
[2017-04-19 05:56] LABS: BASOPHILS 0.1 % (0-2); EOSINOPHILS 1.4 % (0-7); HEMATOCRIT 31.3 % (42.0-54.0); HEMOGLOBIN 10.4 g/dL (13.5-17.5); IMMATURE GRANULOCYTES 0.3 % (0-5); LYMPHOCYTES 15.6 % (15-50); MCH 26.9 pg (26.0-34.0); MCHC 33.2 g/dL (31.0-37.0); MCV 81.1 fL (80.0-100.0); MEAN PLATELET VOLUME 9.8 fL (7.4-10.4); MONOCYTES 5.7 % (2-11); NEUTROPHILS 76.9 % (40-80); PLATELET COUNT 227 10x3/uL (130-400); RBC 3.86 10x6/uL (4.20-6.10); RDW 14.7 % (11.5-14.5); WBC 7.2 10x3/uL (4.8-10.8)
[2017-04-19 06:23] LABS: ALBUMIN 1.4 g/dL (3.4-5.0); ALKALINE PHOSPHATASE 46 U/L (46-116); ALT (SGPT) 13 U/L (10-68); BILIRUBIN - TOTAL 0.18 mg/dL (0.2-1.3); CALC OSMOLALITY 266 mosm/kg (275-300); CALCIUM 7.3 mg/dL (8.5-10.1); CARBON DIOXIDE 24.8 mmol/L (21.0-32.0); CHLORIDE - SERUM 102 mmol/L (98-107); CREATININE - SERUM 0.7 mg/dL (0.6-1.3); GLUCOSE 105 mg/dL (74-106); POTASSIUM - SERUM 4.8 mmol/L (3.5-5.1); PROTEIN - SERUM 5.4 g/dL (6.4-8.2); SODIUM 132 mmol/L (136-145); UREA NITROGEN 17 mg/dL (7-18); eGFR NON AFRICAN AMERICAN > 90 mL/min (90-120)
--- NOTE | 2017-04-19 08:02 | NUR ---
A&O, DENIES NEEDS, CALL LIGHT IN REACH, NO DISTRESS NOTED, BED LOWEST POSITION, WILL CONTINUE TO MONITOR
[2017-04-19 08:29] VITALS: BP 104/67
[2017-04-19 11:30] VITALS: BP 100/65
--- NOTE | 2017-04-19 12:40 | NUR ---
NUTRITION F/U CHART REVIEWED. PT TOLERATING REG DIET. RECOMMEND DC PROCALAMINE AND INTRALIPIDS. RD FOLLOWING
--- NOTE | 2017-04-19 14:27 | NUR ---
REPORT RECIEVED ASSUMED CARE. PATIENT UP AMBULATING IN [place] WITH PT. NO COMPLAINTS OR PROBLEMS AT THIS TIME. CALL LIGHT WITHIN REACH.
--- NOTE | 2017-04-19 15:30 | NUR ---
PATIENT PLEURAX DRAIN DRAINED ORDERED AT THIS TIME. PATIENT TOLERATED WITH NO PAIN. IV INTACT. CALL LIGHT WITHIN REACH.
[2017-04-19 16:27] VITALS: BP 114/60
--- NOTE | 2017-04-19 18:20 | NUR ---
PATIENT SITTING UP AT THIS TIME WITH IV INTACT. NO COMPLAINTS. CALL LIGHT WITHIN REACH.
--- NOTE | 2017-04-20 03:48 | NUR ---
PATIENT RESTING IN BED WITH EYES CLOSED AND NO VISIBLE SIGNS OF DISTRESS. BED IN LOWEST POSITION AND CALL LIGHT WITHIN REACH.
[2017-04-20 04:00] VITALS: BP 105/69
[2017-04-20 06:09] LABS: BASOPHILS 0.2 % (0-2); EOSINOPHILS 1.7 % (0-7); HEMATOCRIT 31.5 % (42.0-54.0); HEMOGLOBIN 10.4 g/dL (13.5-17.5); IMMATURE GRANULOCYTES 0.6 % (0-5); LYMPHOCYTES 15.6 % (15-50); MCV 81.8 fL (80.0-100.0); MEAN PLATELET VOLUME 9.8 fL (7.4-10.4); MONOCYTES 5.9 % (2-11); PLATELET COUNT 243 10x3/uL (130-400); RBC 3.85 10x6/uL (4.20-6.10); RDW 14.8 % (11.5-14.5); WBC 6.4 10x3/uL (4.8-10.8)
[2017-04-20 06:36] LABS: CALC OSMOLALITY 270 mosm/kg (275-300); CALCIUM 7.3 mg/dL (8.5-10.1); CARBON DIOXIDE 26.8 mmol/L (21.0-32.0); CHLORIDE - SERUM 102 mmol/L (98-107); CREATININE - SERUM 0.7 mg/dL (0.6-1.3); GLUCOSE 99 mg/dL (74-106); POTASSIUM - SERUM 4.2 mmol/L (3.5-5.1); SODIUM 135 mmol/L (136-145); UREA NITROGEN 14 mg/dL (7-18); eGFR NON AFRICAN AMERICAN > 90 mL/min (90-120)
[2017-04-20 07:55] VITALS: BP 104/64
--- NOTE | 2017-04-20 09:35 | NUR ---
PATIENT SITTING UP IN CHAIR AT BEDSIDE. NO SIGNS OF DISTRESS NOTED. CALL LIGHT IN REACH.
[2017-04-20 12:19] VITALS: BP 96/64
[2017-04-20 15:59] VITALS: BP 120/72
[2017-04-20 20:00] VITALS: BP 102/66
--- NOTE | 2017-04-20 21:44 | NUR ---
REC'D SITTING UP IN BED. ALERT AND ORIENTED X4. REPORTED PAIN 8/. DENIED FURTHER NEEDS AT THIS TIME. IS WANTING ME TO LET THE RAIL DOWN SO THAT HE CAN GET TO THE BSC, INSTRUCTED THAT HE HIT HIS CALL LIGHT IF HE NEEDED TO GO TO THE BATHROOM, AND THAT I WOULD NOT LET THE RAIL DOWN DUE TO HIS SAFTEY. VERBALIZED UNDERSTANDING. WILL ADMIN PAIN MEDS PRESCRIBED. NO DISTRESS NOTED. INSTRUCTED TO CALL IF NEEDED ANYTHING, VERBLAIZED UNDERSTANDING. BED LOW, LOCKED, CALL LIGHT IN REACH.
--- NOTE | 2017-04-20 22:00 | NUR ---
USING STERILE TECHNIQUE EMPTIED PLUREX DRAIN, 50ML. PATIENT IS ALERT AND ORIENTED, VERY COOPERATIVE. PATIENT DENIES NEEDS, BED IN LOWEST POSITION, CALL LIGHT IN REACH. BED RIALS UP X'S 2.
[2017-04-21] VITALS: BP 130/87
[2017-04-21 04:00] VITALS: BP 120/71
[2017-04-21 07:57] VITALS: BP 105/68
--- NOTE | 2017-04-21 07:58 | NUR ---
AWAKE AND ALERT. ORIENTED X3. NO C/O AT THIS TIME. LUNGS ARE CLEAR BILATERALLY, NO COUGH NOTED. SKIN IS INTACT WITHOUT REDNESS EXCEPT WOUND TO RIGHT LOWER ABDOMEN WHICH HAS A DRY INTACT DRESSING IN PLACE. SL TO RIGHT HAND IS PATENT WITHOUT REDNESS AT INSERTION SITE. RIGHT PORT PATENT WITHOUT REDNESS AT INSERTION SITE. ON BED SANCHES AT THIS TIME. DENIES NEEDS.
--- NOTE | 2017-04-21 09:30 | NUR ---
TOOK AM MEDS WITHOUT DIFFICULTY. REPORTED LARGE AMOUNT OF LOOSE DIARRHEA STOOL. SKIN CARE PER STAFF.
[2017-04-21] MEDS ORDERED: IPRAT-ALBUT 0.5-3 ML UPD (11:08)
[2017-04-21] MEDS ORDERED: ELIQUIS5 MG PO (11:08)
[2017-04-21] MEDS ORDERED: BETAPACE 80 MG80 MG PO (11:09)
[2017-04-21] MEDS ORDERED: CHRONULAC30 ML PO (11:10)
[2017-04-21 12:15] VITALS: BP 98/55
[2017-04-21] MEDS ORDERED: MUCINEX DM ER1 EAC1 PO (12:51)
--- NOTE | 2017-04-21 12:56 | NUR ---
WALK TEST ON PATIENT: AT ROOM AIR AT REST 96% ONCE PATIENT WALKED HALF THE HALLWAY PATIENTS SPO2 DROPPED TO 87% PLACED BACK ON 2L O2 SPO2 BACK TO 94%.
--- NOTE | 2017-04-21 13:01 | NUR ---
Patient being discharged home today with [facility] set up, I spoke with SAHRA. Patient with portable O2 from [facility] here speaking and teaching patient. Patient stated that he will have someone to stay with him. CM will continue to assist with discharge planning needs as needed.
--- NOTE | 2017-04-21 14:54 | NUR ---
INFORMATION SENT TO [facility] ABOUT THE PLEUREX CATHETER SUPPLIES ALONG WITH [facility] FOR PATIENT TO CALL IF THE NEED ARISES
--- NOTE | 2017-04-21 15:29 | NUR ---
PATIENT AND DAUGHTER NELSON TAUGHT HOW TO USE THE PLEURX CONTAINER. ALL QUESTIONS ANSWERED. DISCHARGE INSTRUCTIONS GIVEN BOTH VERBALLY AND WRITTEN. ALL QUESTIONS ANSWERED. NO NEW PRESCRIPTIONS NEEDED. SL TO RIGHT HAND D/C WITH CATEHERTER INTACT. RIGHT PORT HEPRANIZED AND NEEDLE REMOVED WITHOUT COMPLAICATIONS. PATIENT AND DAUGHTER VERBALIZED UNDERSTANDING OF SAME. DISCHARGED TO HOME WITH FAMILY AMBULATORY.
--- NOTE | 2017-04-22 10:30 | OP ---
PATIENT NAME: MICHEL FISH JR MEDICAL RECORD: [id number] :49 LOCATION:D.[id number] ADMISSION DATE:04/07/17 SURGEON: KAVON ANGEL MD DATE OF OPERATION: 04/12/2017 PREOPERATIVE DIAGNOSES: 1. Metastatic intraabdominal carcinoma. 2. Carcinomatosis. 3. Malignant ascites. 4. Hypertension. 5. Coronary artery disease. 6. Atrial fibrillation. 7. Small bowel obstruction. POSTOPERATIVE DIAGNOSES: 1. Metastatic intraabdominal carcinoma. 2. Carcinomatosis. 3. Malignant ascites. 4. Hypertension. 5. Coronary artery disease. 6. Atrial fibrillation. 7. Small bowel obstruction. PROCEDURES: 1. Right subclavian vein PowerPort placement. 2. Fluoroscopic interpretation. 3. PleurX peritoneal catheter placement. SURGEON: Kavon Angel MD REPORT OF PROCEDURE: The patient's right chest and right flank were prepped and draped in sterile fashion. A needle was used to cannulate the right subclavian vein and a guidewire was advanced with ease. Fluoro was used to note that the wire was in good position in the venous system. A skin incision was made on the right upper lateral chest and a subcutaneous pouch was made over the pectoral fascia. The catheter was tunneled between this pouch and the wire exit site. The port was then sutured to the pectoral fascia using interrupted 3-0 Prolenes times 2. The catheter was cut with a beveled tip at 20 cm. The dilator trocar device was placed over the wire and the wire and dilator were removed. The catheter tip was advanced through the trocar and the trocar was removed. The catheter aspirated nonpulsatile dark blood and flushed easily with heparinized saline. The subcutaneous tissues were reapproximated with interrupted 3-0 Vicryls and the skin was closed with running subcutaneous 5-0 Monocryl. This was then dressed appropriately. We then tried to access the patient's abdominal cavity. Needle was used to access the abdominal cavity initially in a blind fashion and initially we had return of what appeared to be some feculent material. We then used ultrasound guidance. I was eventually able to find a pocket of fluid in the abdominal cavity. We accessed this pocket of fluid and there was return of clear yellow serous fluid. Guidewire was advanced with ease and again fluoro was used to note that the wire was in good position in the right upper quadrant in the subdiaphragmatic space. A skin incision was made on the patient's right upper quadrant and the PleurX catheter was tunneled between this incision and the wire exit site. The dilator trocars were then placed over the wires and the wire and dilator were removed. The PleurX catheter was advanced through the trocar and the trocar was removed. At this point, we OPERATIVE REPORT [id number] MICHEL FISH JR hooked it up to suction and there was a return of about 1600 mL of clear serous fluid. At this point, the drainage stopped. The catheter was sutured into place with 3-0 nylon and the skin incisions were closed with subcutaneous 5-0 Monocryl. This was then dressed appropriately. COMPLICATIONS: None. CONDITION: Stable. ANESTHESIA: General endotracheal. BLOOD LOSS: Minimal. TRANSINT:[id number] Voice Confirmation ID: [id number] DOCUMENT ID: [id number] KAVON ANGEL MD at 1030 CC: TORITO WELLS MD [id number] DICTATION DATE: 04/12/17 170 DIRECTOR OF PUBLIC SAFETY: 04/12/172020 DIS IN 04/21/17 [facility] [address] [place] [address]
--- NOTE | 2017-05-02 13:30 | EC ---
PATIENT:MICHEL FISH I DATE OF SERVICE: 04/07/17 SEX: M MEDICAL RECORD: [id number] DATE OF : 49 LOCATION:D.[facility] AGE OF PATIENT: 71 ADMISSION DATE: 04/07/17 REFERRING PHYSICIAN: INTERPRETING PHYSICIAN: VALENTINE ZACARIAS MD ECHOCARDIOGRAM REPORT ECHO CHARGES 5 ECHO LIMITED 1 DOPPLER ECHO COLOR FLOW 2 DOPPLER ECHO PULSE CLINICAL DIAGNOSIS: TACHYCARDIA ECHOCARDIOGRAPHIC MEASUREMENTS (adult normal given) AC root (d.<3.7cm) 0 cm LV Septum d (<1.2 cm> 0 cm Valve Excursion 0 cm LV Septum (systole) 0 cm Left Atria (s.<4.0cm> 3.9 cm LVPW d(<1.2cm) 0 cm RV (d.<2.3cm) 3.3 cm LVPW (sytole) 0 cm LV diastole(<5.6CM) 0 cm MV E-F(>70mm/sec) 0 cm LV systole 0 cm LVOT Diameter 0 cm MV exc.(>10mm) 0 cm Est.ejection fraction (50-75%) % Pericardial Effusion N DOPPLER: LVIT 0 cm/sec A 0 cm/sec E 0 cm/sec LA 0 cm/sec RVSP 38.0 mmHg LVOT 0 cm/sec AOP1/2T 0 m/s Asc. Ao 0 cm/sec RVOT 0 cm/sec RA 0 cm/sec PA 0 cm/sec AV Gradient Peak 0 mmHg AV Mean 0 mmHg AV Area 0 cm MV Gradient Peak 0 mmHg MV Mean 0 mmHg MV Area 0 cm COMMENTS: LIMITED STUDY (2-D,COLOR,DOPPLER) Central Supply Tech: Boaz AN [place] Concrete Mixer Operator: 3 Dr. Pemberton TAPE# PACS DATE OF SERVICE: 04/15/2017 This is a limited study includes 2D echo, color flow Doppler. Grossly LVH appears present. LV internal dimensions are normal. There is paradoxical septal motion consistent with a previous history of PE and pulmonary hypertension. Overall, LV function reduced 40% to 45%. Aortic valve is tricuspid. No stenosis by Doppler interrogation. Left atrium is normal at 3.9 cm. Mitral valve shows no prolapse, no significant MR. Right-sided chambers appeared dilated, moderate TR. Incidental note is made of large pleural effusion. ECHOCARDIOGRAM REPORT [id number] MICHEL FISH JR TRANSINT:[id number] Voice Confirmation ID: [id number] DOCUMENT ID: [id number] 04/29/2017 Edited to correct date of service, dmm. VALENTINE ZACARIAS MD at 1330 CC: [id number] DICTATION DATE: 04/17/17 1000 BRIMMING MACHINE OPERATOR: 04/17/17 1042 DIS IN 04/21/17 [place] [id number] [place] [id number]
--- NOTE | 2017-05-09 11:43 | CN ---
PATIENT NAME:MICHEL MILLS JR MEDICAL RECORD: [id number] : 49 LOCATION:[id number] ADMIT DATE: 04/07/17 ACCOUNT: [id number] CONSULTING PHYSICIAN: RON SEWELL MD REFERRING PHYSICIAN: CEASAR WICK MD DATE OF CONSULTATION: 04/13/2017 CONSULT REQUESTING PHYSICIAN: Dr. Enamorado REASON FOR CONSULTATION: Shortness of breath. HISTORY OF PRESENT ILLNESS: Mr. Mills is a 71-year-old gentleman who was admitted with an intestinal obstruction. 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 The patient also having huge ascites, he underwent PleurX tube placement yesterday and post-procedure, the patient was dyspneic and he was put on 100% nonrebreather. Now he is feeling a lot better and he just on 4 liters nasal cannula oxygen. The patient does have a history of smoking for 3-4 years in the past, but he never diagnosed with COPD and he is not on any inhalers. REVIEW OF SYSTEMS: Denies any coughing, no wheezing. No chest pain. PAST MEDICAL HISTORY: 1. Rectal carcinoma resected in 2005. 2. Coronary artery disease, [place], status post stent placement. 3. Anxiety. PAST SURGICAL HISTORY: 1. Status post pacemaker placement. 2. Appendectomy. 3. Tonsillectomy and adenoidectomy. ALLERGIES: There are no known drug allergies. PRESENT MEDICATIONS: [email or web address] was reviewed. PERSONAL AND SOCIAL HISTORY: The patient has a remote history of smoking for 3-4 years. He is a nondrinker. FAMILY HISTORY: None known. PHYSICAL EXAMINATION: GENERAL: Now, the patient is lying comfortably. He is not in acute distress. VITAL SIGNS: The blood pressure is 104/73, pulse is 110, respirations 22, temperature is 97.2, SpO2 is 96% on 4 liters nasal cannula. HEENT: Conjunctivae are pink. Sclerae not icteric. NECK: Supple, no JVD. CHEST: There are basal crackles. No wheezing. HEART: Rate and rhythm regular, normal sound, no murmur. ABDOMEN: Distended. Bowel sounds are muffled. There is ascites. The PleurX tube is in place. RECTAL: Deferred. EXTREMITIES: No cyanosis, no clubbing, no pedal edema. SKIN: Warm, normal turgor. CENTRAL NERVOUS SYSTEM: The patient is awake and alert. There is no obvious CONSULT REPORT [id number] MICHEL MILLS JR cranial nerve abnormality. The gait was not tested. LABORATORY DATA: CBC: WBC 12.5, hemoglobin 11.4, hematocrit 34.7, platelet count 317. Chemistry: Sodium 133, potassium 4.5, BUN is 20, creatinine 0.9. ABG: Yesterday, the pH is 7.36, pCO2 is 36.4, the pO2 is 81, bicarb 20.6. This was done on 100% nonrebreather. IMPRESSION: 1. Acute hypoxic respiratory failure post-procedural, rule out PE, rule out pleural effusion, rule out pulmonary edema, rule out any metastasis to the lung. 2. Adenocarcinoma of the unknown origin, possible colon. 3. Malignant ascites. 4. Metastasis to the liver. 5. Dyspnea secondary to acute hypoxic respiratory failure. 6. Paroxysmal atrial fibrillation. 7. Hypertension. 8. Ex-smoker. RECOMMENDATION: 1. Continue supplemental oxygen. 2. Albuterol ipratropium nebulizer p.r.n. 3. I will check the CTA of the chest to rule out PE, rule out metastasis, rule out pleural effusion. Dr. Fine thank you for involving me in the care of Mr. Mills. TRANSINT:[id number] Voice Confirmation ID: [id number] DOCUMENT ID: [id number] RON SEWELL MD at 1143 CC: JACEK BARRIOS MD [id number] DICTATION DATE: 04/13/17 1016 FLARING MACHINE OPERATOR: 04/13/17 1037 [facility] IN 04/21/[address] [address]
[2017-07-27] MEDS ORDERED: BYSTOLIC5 MG PO (13:14)
[2017-07-27] MEDS ORDERED: PEPCID20 MG PO (13:17)
[2017-07-27] MEDS ORDERED: XELODA500 MG PO (13:17)
[2017-07-27] MEDS ORDERED: PRAVACHOL20 MG PO (13:18)
[2017-07-27] MEDS ORDERED: ASPIRIN EC81 M1 PO (13:21)
== END 2017-04-21 15:31 | disposition home health service (06) | DRG 356 ==
LOC: D.ER 13:06 → D.MS 19:25 → D.ICU 19:25 → D.MS 04-13 21:52
PROVIDERS: Family Medicine; Internal Medicine Gastroenterology; Internal Medicine Pulmonary Disease; ADMIT Family Medicine Adult Medicine
PROC: 0D9670Z Drainage of Stomach with Drainage Device, Via Natural or Artificial Opening (ICD-10-PCS; principal; 2017-04-07)
PROC: 0W9G3ZZ Drainage of Peritoneal Cavity, Percutaneous Approach (ICD-10-PCS; 2017-04-10)
PROC: 0WHG33Z Insertion of Infusion Device into Peritoneal Cavity, Percutaneous Approach (ICD-10-PCS; 2017-04-12)
PROC: 05H533Z Insertion of Infusion Device into Right Subclavian Vein, Percutaneous Approach (ICD-10-PCS; 2017-04-12)
PROC: B5161ZA Fluoroscopy of Right Subclavian Vein using Low Osmolar Contrast, Guidance (ICD-10-PCS; 2017-04-12)
PROC: 3E03305 Introduction of Other Antineoplastic into Peripheral Vein, Percutaneous Approach (ICD-10-PCS; 2017-04-14)
DX: C78.6 Secondary malignant neoplasm of retroperitoneum and peritoneum (principal); I26.99 Other pulmonary embolism without acute cor pulmonale; J96.01 Acute respiratory failure with hypoxia; R18.0 Malignant ascites; K56.7 Ileus, unspecified; N39.0 Urinary tract infection, site not specified; E46 Unspecified protein-calorie malnutrition; E87.1 Hypo-osmolality and hyponatremia; J90 Pleural effusion, not elsewhere classified; J81.1 Chronic pulmonary edema; C78.7 Secondary malignant neoplasm of liver and intrahepatic bile duct; K59.00 Constipation, unspecified; D49.0 Neoplasm of unspecified behavior of digestive system; I48.91 Unspecified atrial fibrillation; I10 Essential (primary) hypertension; I25.10 Atherosclerotic heart disease of native coronary artery without angina pectoris; Z85.038 Personal history of other malignant neoplasm of large intestine; C26.9 Malignant neoplasm of ill-defined sites within the digestive system

== ENCOUNTER → 2017-05-20 09:45 | Outpatient (CLI) | payer MEDICARE ==
[2017-04-08 10:51] VITALS: BMI 22.9
[~2017-05-20 09:45] MED LIST changes: +ASPIRIN EC81 M1 PO; +BYSTOLIC5 MG PO; +CHRONULAC30 ML PO; +ELIQUIS5 MG PO; +IPRAT-ALBUT 0.5-3 ML UPD; +MUCINEX DM ER1 EAC1 PO; +PEPCID20 MG PO; +PRAVACHOL20 MG PO; +XELODA500 MG PO
== END | disposition home or self-care (01) ==
LOC: D.RAD 05-17 13:00
DX: R60.9 Edema, unspecified (principal)

== ENCOUNTER 2017-07-29 05:38 | Day surgery (SDC) | payer MEDICARE ==
[2017-07-27 14:18] LABS: BASOPHILS 0.1 % (0-2); EOSINOPHILS 1.5 % (0-7); HEMATOCRIT 33.1 % (42.0-54.0); IMMATURE GRANULOCYTES 0.1 % (0-5); LYMPHOCYTES 45.7 % (15-50); MCH 31.3 pg (26.0-34.0); MCHC 33.2 g/dL (31.0-37.0); MONOCYTES 11.4 % (2-11); NEUTROPHILS 41.2 % (40-80); PLATELET COUNT 152 10x3/uL (130-400); RBC 3.52 10x6/uL (4.20-6.10); RDW 26.2 % (11.5-14.5); WBC 7.4 10x3/uL (4.8-10.8)
[2017-07-27 14:29] LABS: APTT 32.3 SECONDS (22.8-39.4); CALC OSMOLALITY 284 mosm/kg (275-300); CALCIUM 8.6 mg/dL (8.5-10.1); CARBON DIOXIDE 28.3 mmol/L (21.0-32.0); CHLORIDE - SERUM 105 mmol/L (98-107); CREATININE - SERUM 0.8 mg/dL (0.6-1.3); GLUCOSE 94 mg/dL (74-106); INR 1.27 (0.85-1.17); POTASSIUM - SERUM 4.4 mmol/L (3.5-5.1); PROTIME 15.4 SECONDS (11.6-15.0); SODIUM 142 mmol/L (136-145); UREA NITROGEN 17 mg/dL (7-18); eGFR NON AFRICAN AMERICAN > 90 mL/min (90-120)
[~2017-07-29] VITALS: Ht 177.8 cm; Wt 68.9 kg
--- NOTE | ~2017-07-29 | OP ---
PATIENT NAME: MICHEL FISH JR MEDICAL RECORD: [id number] :49 LOCATION:D.[facility] ADMISSION DATE: SURGEON: GILBERT ANGEL MD DATE OF OPERATION: 07/29/2017 DATE OF OPERATION: 07/29/2017 PREOPERATIVE DIAGNOSES: 1. Rectal cancer. 2. Carcinomatosis with malignant ascites. 3. Atrial fibrillation. 4. Hypertension. 5. Chronic anticoagulant use secondary to atrial fibrillation. 6. Coronary artery disease. DISCHARGE DIAGNOSES: 1. Rectal cancer. 2. Carcinomatosis with malignant ascites. 3. Atrial fibrillation. 4. Hypertension. 5. Chronic anticoagulant use secondary to atrial fibrillation. 6. Coronary artery disease. PROCEDURE: Removal of right upper quadrant peritoneal PleurX catheter. SURGEON: Gilbert Angel MD REPORT OF PROCEDURE: The patient's abdomen was prepped and draped in sterile fashion. A gentle tension was applied to the PleurX catheter. The cuff was right near the skin. I eventually did some gentle dissection through the opening around the cuff and I was able to free the cuff out of the subcutaneous attachments. Once this was done, then the catheter easily pulled out of the intraperitoneal space. The catheter tip was noted to be intact. We then cleaned off the area and infused a total of 10 mL of 0.25% Marcaine with epinephrine. A clean dressing was applied to the area. COMPLICATIONS: None. CONDITION: Stable. ANESTHESIA: General endotracheal. BLOOD LOSS: Minimal. TRANSINT:[id number] Voice Confirmation ID: [id number] DOCUMENT ID: [id number] GILBERT ANGEL MD at 0956 CC: TORITO WELLS MD and JACEK BARRIOS MD [id number] DICTATION DATE: 07/29/17 0834 ANATOMY AND PHYSIOLOGY INSTRUCTOR: 07/29/17 1039 [facility] 07/29/17 [facility] [address] [place] [address]
[2017-07-29 07:08] VITALS: BP 118/71; Ht 177.8 cm; Wt 68.9 kg
[2017-07-29] MEDS ORDERED: HYDROCODONE-APA1 TAB PO (08:30)
== END 2017-07-29 09:58 | disposition home or self-care (01) ==
LOC: D.OPS 05:38 → D.PAN 12:30 → D.OPS 12:30
PROVIDERS: Anesthesiology; Surgery
DX: Z46.82 Encounter for fitting and adjustment of non-vascular catheter (principal); C20 Malignant neoplasm of rectum; C80.0 Disseminated malignant neoplasm, unspecified; R18.0 Malignant ascites; I48.91 Unspecified atrial fibrillation; I10 Essential (primary) hypertension; I25.10 Atherosclerotic heart disease of native coronary artery without angina pectoris; Z79.01 Long term (current) use of anticoagulants; Z01.812 Encounter for preprocedural laboratory examination